=== PATIENT | male | born 1955 | race Caucasian/White ===

== ENCOUNTER 2019-11-19 15:35 | Inpatient (IN) | payer MEDICARE ==
[2019-11-19] MEDS ORDERED: ONDANSETRON 4 MG/2 ML VIAL IVP STA (15:56)
[2019-11-19] MEDS ORDERED: MORPHINE SULFATE 4 MG/ML SYRINGE IV STA (15:56)
[2019-11-19] MEDS ORDERED: SODIUM CHLORIDE 0.9% 1,000 ML IV STA (15:56)
[2019-11-19] MEDS ORDERED: FAMOTIDINE 20 MG/2 ML VIAL IV STA (15:57)
--- NOTE | 2019-11-19 16:03 | ED ---
General Adult HPI - General Chief complaint: Abdominal Pain Stated complaint: enlarged liver Time Seen by Provider: 11/19/19 15:46 Source: patient, RN notes reviewed Mode of arrival: ambulatory Limitations: no limitations - History of Present Illness Initial comments: Patient is a pleasant [age]-year-old male presenting to the emergency Department with complaints of abdominal discomfort. Patient had minimal symptoms around 2 AM. Discomfort was mild when he woke this morning. Discomfort has worsened since that time and is currently rated 8.5/10. Discomfort feels like pressure and is steady. There is mild nausea. Decreased appetite. Patient has only had a small amount of Jell-O earlier today. Patient has felt constipated over the past week or so. Patient did have a knee procedure done 9 or 10 days ago. No diarrhea. Patient has lost approximately 90 pounds over the past several months however this was intentional with a new diet plan that is working well for him. -: hour(s) - Related Data Allergies Allergy/AdvReac Type Severity Reaction Status Date / Time No Known Allergies Allergy Verified 11/19/19 15:44 Review of Systems ROS Statement: Those systems with pertinent positive or pertinent negative responses have been documented in the HPI. ROS Other: All systems not noted in ROS Statement are negative. Constitutional: Denies: fever Eyes: Denies: eye pain ENT: Denies: ear pain Respiratory: Denies: cough, dyspnea Cardiovascular: Denies: chest pain Endocrine: Denies: fatigue Gastrointestinal: Reports: abdominal pain, nausea, constipation. Denies: vomiting Genitourinary: Denies: dysuria Musculoskeletal: Denies: back pain Skin: Denies: rash Neurological: Denies: weakness Past Medical History Past Medical History: Diabetes Mellitus, Hyperlipidemia, Hypertension History of Any Multi-Drug Resistant Organisms: None Reported Past Surgical History: Appendectomy, Orthopedic Surgery Past Psychological History: No Psychological Hx Reported Smoking Status: Never smoker Past Alcohol Use History: None Reported Past Drug Use History: None Reported General Exam Limitations: no limitations General appearance: alert, in no apparent distress Head exam: Present: normocephalic Eye exam: Present: normal appearance Neck exam: Present: normal inspection Respiratory exam: Present: normal lung sounds bilaterally Cardiovascular Exam: Present: regular rate, normal rhythm Expanded Peripheral pulses: 2+: Dorsalis Pedis (R), Dorsalis Pedis (L) GI/Abdominal exam: Present: soft, tenderness (Moderate diffuse tenderness), hypoactive bowel sounds. Absent: distended, guarding, rebound, rigid, pulsatile mass Extremities exam: Present: normal inspection Neurological exam: Present: alert Psychiatric exam: Present: normal affect, normal mood Skin exam: Present: normal color Course Vital Signs 11/19/19 11/19/19 11/19/19 15:41 15:44 16:44 Temperature 98 F Pulse Rate 55 L Respiratory 16 18 18 Rate Blood Pressure 152/75 O2 Sat by Pulse 98 Oximetry 11/19/19 17:44 Temperature Pulse Rate 57 L Respiratory 18 Rate Blood Pressure 145/66 O2 Sat by Pulse 98 Oximetry Medical Decision Making - Medical Decision Making Patient reevaluated and significant improvement following pain medication. Patient and family updated on results and plan. Case was discussed in detail with Dr. Luna, who will admit covering for surgical call and does request NG tube. - Lab Data Result diagrams: 11/19/19 16:20 11/19/19 16:20 Lab Results 11/19/19 11/19/19 11/19/19 Range/Units 16:20 16:20 16:20 WBC 13.2 H (3.8-10.6) k/uL RBC 5.07 (4.30-5.90) m/uL Hgb 16.1 (13.0-17.5) gm/dL Hct 48.6 (39.0-53.0) % MCV 96.0 (80.0-100.0) fL MCH 31.9 (25.0-35.0) pg MCHC 33.2 (31.0-37.0) g/dL RDW 13.4 (11.5-15.5) % Plt Count 301 (150-450) k/uL Neutrophils % 82 % Lymphocytes % 10 % Monocytes % 5 % Eosinophils % 1 % Basophils % 1 % Neutrophils # 10.8 H (1.3-7.7) k/uL Lymphocytes # 1.4 (1.0-4.8) k/uL Monocytes # 0.6 (0-1.0) k/uL Eosinophils # 0.2 (0-0.7) k/uL Basophils # 0.1 (0-0.2) k/uL PT 11.0 (9.0-12.0) sec INR 1.1 (<1.2) APTT 28.1 (22.0-30.0) sec Sodium 131 L (137-145) mmol/L Potassium 4.4 (3.5-5.1) mmol/L Chloride 93 L (98-107) mmol/L Carbon Dioxide 27 (22-30) mmol/L Anion Gap 11 mmol/L BUN 21 H (9-20) mg/dL Creatinine 0.74 (0.66-1.25) mg/dL Est GFR (CKD-EPI)AfAm >90 (>60 ml/min/1.73 sqM) Est GFR (CKD-EPI)NonAf >90 (>60 ml/min/1.73 sqM) Glucose 136 H (74-99) mg/dL Calcium 10.0 (8.4-10.2) mg/dL Total Bilirubin 1.1 (0.2-1.3) mg/dL AST 23 (17-59) U/L ALT 16 (4-49) U/L Alkaline Phosphatase 63 (38-126) U/L Total Protein 7.2 (6.3-8.2) g/dL Albumin 4.8 (3.5-5.0) g/dL Amylase 31 (30-110) U/L Lipase 39 (23-300) U/L - Radiology Data Radiology results: report reviewed (Computed tomography scan of the abdomen and pelvis shows dilated fluid-filled small bowel loops up to 3.7 cm. Some torquing right mid abdomen likely representing transition point. Thickened small bowel adjacent mesenteric edema, suggesting high-grade small bowel obstruction.) Disposition Clinical Impression: Small bowel obstruction Disposition: ADMITTED IP TO THIS [facility] Is patient prescribed a controlled substance at d/c from ED?: No Referrals: Nonstaff,Physician [Primary Care Provider] - 1-2 days Decision Time: 18:50
[2019-11-19 16:34] LABS: Basophils # (A) 0.1 k/uL (0-0.2); Basophils % (A) 1 %; Eosinophils # (A) 0.2 k/uL (0-0.7); Eosinophils % (A) 1 %; HCT 48.6 % (39.0-53.0); HGB 16.1 gm/dL (13.0-17.5); Lymphocytes # (A) 1.4 k/uL (1.0-4.8); Lymphocytes % (A) 10 %; MCH 31.9 pg (25.0-35.0); MCHC 33.2 g/dL (31.0-37.0); Mean Platelet Volume 7.8; Monocytes # (A) 0.6 k/uL (0-1.0); Monocytes % (A) 5 %; Neutrophils # (A) 10.8 k/uL (1.3-7.7); Neutrophils % (A) 82 %; Platelet Count 301 k/uL (150-450); RBC 5.07 m/uL (4.30-5.90); RDW 13.4 % (11.5-15.5); WBC 13.2 k/uL (3.8-10.6)
[2019-11-19 16:43] LABS: INR 1.1 (<1.2); Partial Thromboplastin Time 28.1 sec (22.0-30.0)
[2019-11-19 16:45] LABS: ALT 16 U/L (4-49); AST 23 U/L (17-59); African American GFR (CKD) >90 (>60 ml/min/1.73 sqM); Albumin 4.8 g/dL (3.5-5.0); Alkaline Phosphatase 63 U/L (38-126); Amylase 31 U/L (30-110); Anion Gap 11 mmol/L; Blood Urea Nitrogen 21 mg/dL (9-20); Carbon Dioxide 27 mmol/L (22-30); Chloride 93 mmol/L (98-107); Glucose 136 mg/dL (74-99); Lipase 39 U/L (23-300); Non-African American GFR(CKD) >90 (>60 ml/min/1.73 sqM); Potassium 4.4 mmol/L (3.5-5.1); Sodium 131 mmol/L (137-145); Total Bilirubin 1.1 mg/dL (0.2-1.3); Total Protein 7.2 g/dL (6.3-8.2)
--- NOTE | 2019-11-19 18:11 | CT ---
EXAMINATION TYPE: CT abdomen pelvis w con DATE OF EXAM: 11/19/2019 COMPARISON: NONE HISTORY: 64-year-old male with right side abdomen pain TECHNIQUE: Contiguous axial scanning of the abdomen and pelvis following administration of 100 ml Iso venkatesh 300 IV contrast. Delayed images through the kidneys and coronal/sagittal reconstructions perform ed. CT DLP: 1404.9 mGycm Automated exposure control for dose reduction was used. FINDINGS: Heart normal size with trace pericardial fluid. There is mild circumferential wall thickening distal esophagus. Calcified pulmonary nodules at the visualized lower lungs compatible with prior granulomat ous disease. No pleural effusion. Mild generalized anasarca change. Liver borderline in size at 17.7 cm. Portal venous system is patent. No biliary ductal dilatation. Th ere are diffuse dilated small bowel loops measuring up to 3.7 cm. This seems to be torquing of small bowel in the right midabdomen, axial image 48 with edematous mesentery and some thickened small bowel loops in this region, refer to axial image 56 and coronal image 49. No free air is seen. Distal small bowel is collapsed. Mild overall stool burden. No pericolonic inflammatory change. Mild to moderate circumferential bladder wall thickening. Prostate gland measures 6.4 cm wide. Mild p elvic free fluid. Bones: Moderate degenerative disc disease lower lumbar spine with hypertrophic facet arthropathy. IMPRESSION: 1. DILATED, FLUID-FILLED SMALL BOWEL LOOPS MEASURING UP TO 3.7 CM. THERE SEEMS TO BE SOME TORQUING OF SMALL BOWEL IN THE RIGHT MID ABDOMEN MOST LIKELY REPRESENTING THE TRANSITION POINT. THERE ARE THICKE TRIXIE SMALL BOWEL LOOPS JUST ADJACENT WITH MESENTERIC EDEMA. FINDINGS HIGHLY SUGGESTIVE OF HIGH-GRADE S MALL BOWEL OBSTRUCTION. 2. MILD PELVIC FREE FLUID LIKELY REACTIVE TO THE OBSTRUCTION. 3. BLADDER WALL THICKENING COULD REPRESENT CYSTITIS OR CHRONIC BLADDER WALL HYPERTROPHY FROM OUTLET O BSTRUCTION GIVEN PROSTATOMEGALY OF 6.4 CM WIDE. 4. MILD CIRCUMFERENTIAL THICKENING DISTAL ESOPHAGUS. CORRELATE TO EXCLUDE ESOPHAGITIS.
[2019-11-19] MEDS ORDERED: NALOXONE 0.4 MG/ML 1 ML VIAL IV PRN (18:51)
[2019-11-19] MEDS ORDERED: ONDANSETRON 4 MG/2 ML VIAL IVP PRN (18:51)
--- NOTE | 2019-11-19 19:34 | XR ---
EXAMINATION TYPE: XR chest 1V portable DATE OF EXAM: 11/19/2019 Comparison: None Clinical History: 64-year-old male NG tube placement Findings: Heart normal size. Aorta and pulmonary vasculature within normal limits. Dense nodule at the right ba se suggestive of a calcified granuloma. Tip of the NG tube not well seen due to the degree of penetra tion. It may extend to just below the GE junction. No consolidation or pleural effusion. Impression: 1. Tip of NG tube not well seen due to the degree of penetration. It may extend to just below the GE junction. 2. No acute cardiopulmonary process.
[2019-11-19 20:57] LABS: Glucose,Whole Blood 89 mg/dL (75-99)
--- NOTE | 2019-11-19 22:46 | XR ---
EXAMINATION TYPE: XR chest 1V portable DATE OF EXAM: 11/19/2019 COMPARISON: Today HISTORY: Check tube placement. TECHNIQUE: Single view FINDINGS: Heart and mediastinum are normal. Lungs are clear. Diaphragm is normal. Bony thorax appears normal. There is nasogastric tube with the tip over the gastric fundus. IMPRESSION: Normal chest. NG tube in good position in the gastric fundus.
[2019-11-20] MEDS: MORPHINE SULFATE 4 MG/ML SYRINGE IV PRN ×3 (02:27→09:53)
[2019-11-20 04:47] LABS: Appearance,Urine Clear (Clear); Bilirubin,Urine Negative (Negative); Blood,Urine Negative (Negative); Color,Urine Yellow; Glucose,Urine (UA) Negative (Negative); Ketones,Urine 2+ (Negative); Leukocyte Esterase,Urine Negative (Negative); Nitrite,Urine Negative (Negative); Protein,Urine Negative (Negative); Specific Gravity,Urine 1.045 (1.001-1.035); Urobilinogen,Urine <2.0 mg/dL (<2.0)
[2019-11-20] MEDS: PANTOPRAZOLE 40 MG/10 ML VIAL IV SCH (06:49)
[2019-11-20 07:06] LABS: Glucose,Whole Blood 115 mg/dL (75-99)
--- NOTE | 2019-11-20 09:31 | P.GSHP ---
History of Present Illness H&P Date: 11/20/19 Chief Complaint: Abdominal pain, small bowel obstruction Is a 64-year-old male admitted to the emergency room with complaints of abdominal pain nausea vomiting. Patient's found have high-grade small bowel obstruction on CAT scan Past Medical History Past Medical History: Diabetes Mellitus, Hyperlipidemia, Hypertension History of Any Multi-Drug Resistant Organisms: None Reported Past Surgical History: Appendectomy, Orthopedic Surgery Additional Past Surgical History / Comment(s): Left knee replacement, hemorrhoidal fisure in 95/ Past Anesthesia/Blood Transfusion Reactions: No Reported Reaction Past Psychological History: No Psychological Hx Reported Smoking Status: Never smoker Past Alcohol Use History: None Reported Past Drug Use History: None Reported Medications and Allergies Home Medications Medication Instructions Recorded Confirmed Type Aspirin EC [Ecotrin Low Dose] 81 mg PO BID 11/19/19 11/19/19 History Atorvastatin [Lipitor] 20 mg PO DAILY 11/19/19 11/19/19 History Cholecalciferol [Vitamin D3 (25 5,000 unit PO DAILY 11/19/19 11/19/19 History Mcg = 1000 Iu)] Losartan Potassium 100 mg PO DAILY 11/19/19 11/19/19 History metFORMIN HCL 850 mg PO HS 11/19/19 11/19/19 History Allergies Allergy/AdvReac Type Severity Reaction Status Date / Time No Known Allergies Allergy Verified 11/19/19 21:00 Surgical - Exam Vital Signs Temp Pulse Resp BP Pulse Ox 98 F 55 L 16 152/75 98 11/19/19 15:41 11/19/19 15:41 11/19/19 15:41 11/19/19 15:41 11/19/19 15:41 - General well developed, moderate distress - Eyes PERRL - ENT normal pinna - Neck no masses - Respiratory normal expansion - Cardiovascular Rhythm: regular - Abdomen Diffuse tenderness throughout. There is no rebound or guarding Abdomen: soft, tender Results - Labs 11/19/19 16:20 11/19/19 16:20 Abnormal Lab Results - Last 24 Hours (Table) 11/19/19 11/19/19 11/20/19 Range/Units 16:20 16:20 04:30 WBC 13.2 H (3.8-10.6) k/uL Neutrophils # 10.8 H (1.3-7.7) k/uL Sodium 131 L (137-145) mmol/L Chloride 93 L (98-107) mmol/L BUN 21 H (9-20) mg/dL Glucose 136 H (74-99) mg/dL POC Glucose (mg/dL) (75-99) mg/dL Ur Specific [place] 1.045 H (1.001-1.035) Urine Ketones 2+ H (Negative) 11/20/19 Range/Units 07:04 WBC (3.8-10.6) k/uL Neutrophils # (1.3-7.7) k/uL Sodium (137-145) mmol/L Chloride (98-107) mmol/L BUN (9-20) mg/dL Glucose (74-99) mg/dL POC Glucose (mg/dL) 115 H (75-99) mg/dL Ur Specific [place] (1.001-1.035) Urine Ketones (Negative) Diabetes panel 11/19/19 Range/Units 16:20 Sodium 131 L (137-145) mmol/L Potassium 4.4 (3.5-5.1) mmol/L Chloride 93 L (98-107) mmol/L Carbon Dioxide 27 (22-30) mmol/L BUN 21 H (9-20) mg/dL Creatinine 0.74 (0.66-1.25) mg/dL Glucose 136 H (74-99) mg/dL Calcium 10.0 (8.4-10.2) mg/dL AST 23 (17-59) U/L ALT 16 (4-49) U/L Alkaline Phosphatase 63 (38-126) U/L Total Protein 7.2 (6.3-8.2) g/dL Albumin 4.8 (3.5-5.0) g/dL Calcium panel 11/19/19 Range/Units 16:20 Calcium 10.0 (8.4-10.2) mg/dL Albumin 4.8 (3.5-5.0) g/dL Pituitary panel 11/19/19 Range/Units 16:20 Sodium 131 L (137-145) mmol/L Potassium 4.4 (3.5-5.1) mmol/L Chloride 93 L (98-107) mmol/L Carbon Dioxide 27 (22-30) mmol/L BUN 21 H (9-20) mg/dL Creatinine 0.74 (0.66-1.25) mg/dL Glucose 136 H (74-99) mg/dL Calcium 10.0 (8.4-10.2) mg/dL Adrenal panel 11/19/19 Range/Units 16:20 Sodium 131 L (137-145) mmol/L Potassium 4.4 (3.5-5.1) mmol/L Chloride 93 L (98-107) mmol/L Carbon Dioxide 27 (22-30) mmol/L BUN 21 H (9-20) mg/dL Creatinine 0.74 (0.66-1.25) mg/dL Glucose 136 H (74-99) mg/dL Calcium 10.0 (8.4-10.2) mg/dL Total Bilirubin 1.1 (0.2-1.3) mg/dL AST 23 (17-59) U/L ALT 16 (4-49) U/L Alkaline Phosphatase 63 (38-126) U/L Total Protein 7.2 (6.3-8.2) g/dL Albumin 4.8 (3.5-5.0) g/dL Assessment and Plan Assessment: Small bowel obstruction. Patient has a high-grade obstruction. He'll undergo exploratory laparotomy today.
[2019-11-20 11:10] LABS: Glucose,Whole Blood 153 mg/dL (75-99)
[2019-11-20 11:34] VITALS: BMI 28.1
[2019-11-20] MEDS ORDERED: IV FLUID CONTINUATION 150 ML IV ONE (14:05)
[2019-11-20] MEDS ORDERED: ONDANSETRON 4 MG/2 ML VIAL ONE (14:25)
[2019-11-20] MEDS ORDERED: HEPARIN SODIUM,PORCINE 5,000 UNIT/ML 1 ML VIAL ONE (14:25)
[2019-11-20] MEDS ORDERED: MIDAZOLAM 2 MG/2 ML VIAL IV ONE (14:31)
[2019-11-20] MEDS ORDERED: fentaNYL (PF) 50 MCG/ML 2 ML AMP IV ONE (14:31)
[2019-11-20] MEDS ORDERED: LACTATED RINGERS 1,000 ML IV ONE ×3 (14:31→16:06)
[2019-11-20] MEDS ORDERED: NALOXONE 0.4 MG/ML 1 ML VIAL IV PRN ×2 (14:43→16:06)
[2019-11-20] MEDS ORDERED: NALBUPHINE 10 MG/ML (1 ML AMP) IV PRN (14:43)
[2019-11-20] MEDS ORDERED: DEXAMETHASONE SOD PHOSPHATE 10 MG/ML 1 ML VIAL IV ONE (14:45)
[2019-11-20] MEDS ORDERED: ONDANSETRON 4 MG/2 ML VIAL IVP ONE (14:45)
[2019-11-20] MEDS ORDERED: ePHEDrine SULFATE/0.9% NACL/PF 50 MG/5 ML SYRINGE IV ONE (15:07)
[2019-11-20] MEDS ORDERED: PROPOFOL 10 MG/ML 20 ML VIAL IV ONE (15:07)
[2019-11-20] MEDS ORDERED: ROCURONIUM 10 MG/ML (5 ML VIAL) IV ONE (15:07)
[2019-11-20] MEDS ORDERED: ceFAZolin 1,000 MG VIAL ONE (15:07)
[2019-11-20] MEDS ORDERED: fentaNYL (PF) 50 MCG/ML 2 ML AMP ONE (15:07)
[2019-11-20] MEDS ORDERED: LIDOCAINE 1% INJ 10MG/ML (20 ML MDV) ONE (15:07)
[2019-11-20] MEDS ORDERED: GLYCOPYRROLATE 0.2 MG/ML 2 ML VIAL ONE (15:07)
[2019-11-20] MEDS ORDERED: NEOSTIGMINE 1 MG/ML 10 ML VIAL ONE (15:07)
[2019-11-20] MEDS ORDERED: SUCCINYLCHOLINE CHLORIDE 100 MG/5 ML SYR IV ONE (15:07)
[2019-11-20] MEDS ORDERED: HEPARIN SODIUM,PORCINE 5,000 UNIT/ML 1 ML VIAL IV ONE (15:10)
[2019-11-20] MEDS ORDERED: SODIUM CHLORIDE 0.9% 100 ML with ceFAZolin 2,000 MG IV ONE ×2 (15:25)
[2019-11-20] MEDS ORDERED: HYDROmorphone 0.5 MG/0.5 ML SYRINGE IVP PRN (16:06)
[2019-11-20] MEDS ORDERED: ONDANSETRON 4 MG/2 ML VIAL IVP PRN (16:06)
[2019-11-20] MEDS: ROPIVACAINE 250 MG, HYDROMORPHONE (PF) 5 MG in SODIUM CHLORIDE 0.9% 200 ML EPIDURAL PRN ×2 (16:13→16:55)
[2019-11-20 16:19] LABS: Glucose,Whole Blood 135 mg/dL (75-99)
--- NOTE | 2019-11-20 16:22 | P.OP ---
Date of Procedure: 11/20/19 Preoperative Diagnosis: Small bowel obstruction Postoperative Diagnosis: Small bowel obstruction secondary to internal hernia Ischemic small bowel Procedure(s) Performed: Exploratory laparotomy Lysis of adhesion Small bowel resection Anesthesia: TYESHA Surgeon: Jose Luis Luna Estimated Blood Loss (ml): 20 Pathology: other (Ileum) Condition: stable Disposition: PACU Description of Procedure: Patient's placed on the table in the supine position. He received general anesthesia. His abdomen was prepped and draped usual fashion. The skin was incised through an upper midline incision. Then using electrocautery the subcutaneous tissue and then the abdominal wall was divided. The [place] retractors placed a wound. There was serosanguineous ascites. The small bowel was visually is. There appeared to be ischemia of the small bowel related to an internal hernia. The adhesive bands creating the internal hernia were lysed and then the hernia was reduced the small bowel was visualized. The small bowel appeared to be ischemic. This point the small bowel was transected proximally distally with a GI stapler, the Enseal device is used to divide the mesentery. and then using the TA a GI stapler a [id number] functional end-to-end staple anastomosis created. 3-0 GI silk sutures using a crotch stitch. The window in the mesentery was closed with 3-0 Vicryl. The abdomen was irrigated there is no bleeding seen. The fascia was closed with looped #1 PDS suture. Skin was closed jaden. Patient top she will was sent to recovery room in stable condition.
[2019-11-20] MEDS: INSULIN ASPART (NovoLOG) 100 UNIT/ML VIAL SQ SCH ×2 (17:37→20:47)
[2019-11-20 20:45] LABS: Glucose,Whole Blood 114 mg/dL (75-99)
--- NOTE | 2019-11-20 23:16 | P.CONS ---
History of Present Illness - Reason for Consult Consult date: 11/20/19 Medical management - Chief Complaint Abdominal pain - History of Present Illness Patient is a 64-year-old man with known history of hypertension, diabetes type 2 [id number], hyperlipidemia, recent history of left knee torn meniscus status post washout was admitted to hospital with complaints of abdominal discomfort. Patient symptoms started around 2 AM last night and woke him up from sleep. Pain patient felt pressure like sensation. Mainly in the mid abdomen associated nausea and patient also had small amount of dark red mucus in the stool as per patient. Denied any complaints of fever. No chills. No chest pain or shortness of breath. No prior history of bowel obstruction. D enied any recent diarrhea. Patient has been constipated for about a week. Patient lost approximately 90 pounds over the last several months however this was intentional with a new diet plan that is working well for him. CT of the abdomen pelvis showed dilated fluid-filled small bowel loops measuring up to 3.7 cm. There seems to be some talking of small bowel in the right midabdomen most likely representing the transition point. There are thickened small bowel loops just adjacent with the mesenteric edema. Findings highly suggestive of high-grade small bowel obstruction. Chest x-ray showed tip of the NG tube not well seen due to the area of placement. It may extend into just below the GE junction. No acute cardiopulmonary process. Patient was taken to the OR and patient underwent exploratory laparotomy, lysis of radiation and small bowel resection. Postoperatively patient blood pressure is elevated. Laboratory showed WBC 13.2, hemoglobin 16.1 and platelets 301 Sodium 131, potassium 4.4, chloride 99, BUN 21 and creatinine 0.74 Urine negative for infection COVID-19 PCR negative. Review of Systems Constitutional: Patient denies any fever or chills . No generalized weakness or weight loss. Abdomen: Patient does have nausea no vomiting. Did have abdominal pain and constipation. No diarrhea. . Cardiovascular: Patient denies any chest pain or short of breath no palpitations. Respiratory: patient denied any cough is from production. No shortness of breath Neurologic: Patient denied any numbness or tingling headache. Musculoskeletal: Patient denies any complaints of joint swelling or deformity. Skin: Negative Psychiatric: Negative Endocrine: No heat or cold intolerance. No recent weight gain. Genitourinary: No dysuria or hematuria. All other 14 point ROS negative except the above Past Medical History Past Medical History: Diabetes Mellitus, Hyperlipidemia, Hypertension History of Any Multi-Drug Resistant Organisms: None Reported Past Surgical History: Appendectomy, Orthopedic Surgery Additional Past Surgical History / Comment(s): Left knee replacement, hemorrhoidal fisure in Past Anesthesia/Blood Transfusion Reactions: No Reported Reaction Past Psychological History: No Psychological Hx Reported Smoking Status: Never smoker Past Alcohol Use History: None Reported Past Drug Use History: None Reported Medications and Allergies Home Medications Medication Instructions Recorded Confirmed Type Aspirin EC [Ecotrin Low Dose] 81 mg PO BID 11/19/19 11/19/19 History Atorvastatin [Lipitor] 20 mg PO DAILY 11/19/19 11/19/19 History Cholecalciferol [Vitamin D3 (25 5,000 unit PO DAILY 11/19/19 11/19/19 History Mcg = 1000 Iu)] Losartan Potassium 100 mg PO DAILY 11/19/19 11/19/19 History metFORMIN HCL 850 mg PO HS 11/19/19 11/19/19 History Allergies Allergy/AdvReac Type Severity Reaction Status Date / Time No Known Allergies Allergy Verified 11/20/19 14:10 Physical Exam Vitals: Vital Signs Temp Pulse Pulse Pulse Resp BP BP 11/20/19 16:43 70 16 157/72 11/20/19 16:28 67 16 131/63 11/20/19 16:13 97.4 F L 67 16 113/64 11/20/19 14:45 63 16 141/67 11/20/19 14:00 97.5 F L 64 16 161/77 11/20/19 07:00 98.4 F 60 17 11/20/19 02:20 98.0 F 57 L 11/19/19 19:45 97.7 F 51 L 14 11/19/19 19:29 63 18 129/67 11/19/19 19:00 63 18 129/67 11/19/19 18:00 18 11/19/19 17:44 57 L 18 145/66 BP Pulse Ox 11/20/19 16:43 97 11/20/19 16:28 99 11/20/19 16:13 99 11/20/19 14:45 99 11/20/19 14:00 97 11/20/19 07:00 174/81 91 L 11/20/19 02:20 182/79 95 11/19/19 19:45 162/80 99 11/19/19 19:29 98 11/19/19 19:00 98 11/19/19 18:00 11/19/19 17:44 98 Intake and Output 11/20/19 11/20/19 11/20/19 06:59 14:59 22:59 Intake Total 8320 690 8656 Output Total 1700 400 225 Balance -660 440 975 Intake: IV 450 1200 Intake, IV Titration 1040 390 Amount Sodium Chloride 0.9% 1, 1040 390 000 ml @ 130 mls/hr IV . [id number] STA Rx#:[id number] Output: Urine 1700 400 200 Straight 850 400 Estimated Blood Loss 25 Other: Voiding Method Toilet Urinal Weight 84 kg PHYSICAL EXAMINATION: Patient is lying in the bed comfortably, no acute distress, awake alert and oriented..NG tube is in place. HEENT: Normocephalic. Neck is supple. Pupils reactive. Nostrils clear. Oral cavity is moist. Ears reveal no drainage. Neck reveals no JVD, carotid bruits, or thyromegaly. CHEST EXAMINATION: Trachea is central. Symmetrical expansion. Lung pascual clear to auscultation and percussion. CARDIAC: Normal S1, S2 with no gallops. No murmurs ABDOMEN: Soft. Surgical site is bandaged. Bowel sounds diminished. No abdominal bruits. Extremities: reveal no edema. No clubbing or cyanosis Neurologically awake, alert, oriented x3 with well-coordinated movements. No focal deficits noted Skin: No rash or skin lesions. Psychiatric: Coperative. Nonsuicidal Musculoskeletal: No joint swelling or deformity. Normal range of motion. Results CBC & Chem 7: 11/19/19 16:20 11/19/19 16:20 Labs: Abnormal Lab Results - Last 24 Hours (Table) 11/20/19 11/20/19 11/20/19 Range/Units 04:30 07:04 11:09 POC Glucose (mg/dL) 115 H 153 H (75-99) mg/dL Ur Specific [place] 1.045 H (1.001-1.035) Urine Ketones 2+ H (Negative) 11/20/19 Range/Units 16:18 POC Glucose (mg/dL) 135 H (75-99) mg/dL Ur Specific [place] (1.001-1.035) Urine Ketones (Negative) Assessment and Plan Assessment: High-grade small bowel obstruction status post exploratory laparotomy and lysis of adhesions and bowel resection. Continued on NG tube. Thickened esophagus on the CT possible gastritis Recent history of left knee meniscal washout surgery Recent 90 LB intentional weight loss with new diet regimen Uncontrolled hypertension Hyperlipidemia Diabetes type 2 [id number] DVT prophylaxis with Lovenox subcu Plan Patient will be continued on IV hydration and NG tube for decompression. s/p exp lap. Patient is being continued on pain management, incentive spirometry and DVT prophylaxis. Continue with insulin scale and hold metformin at this time. Continue with home blood pressure medication- losartan. We will follow closely and further recommendations based on clinical course. Thank you for your consult. Time with Patient: Greater than 30
[2019-11-21 06:47] LABS: Glucose,Whole Blood 137 mg/dL (75-99)
--- NOTE | 2019-11-21 07:33 | P.PN ---
Progress Note - Text Progress Note Date: 11/21/19 Postoperative day #1 status post explaretory laparotomy/epidural catheter placed for postoperative analgesia, patient doing well epidural site okay, patient currently on combination of epidural infusion solution of Ropivacaine 0.0625% and Dilaudid 20 g per mL the infusion rate at 10 ml per hour , patient had no motor deficit epidural site okay , vital signs stable ,VAS 0/10 , Assessment and plan= post operative day # 1 patient doing well ,pain well controlled , there is no anesthesia related complications
[2019-11-21 07:47] LABS: Basophils % (A) 0 %; Eosinophils % (A) 0 %; HCT 38.7 % (39.0-53.0); Lymphocytes # (A) 0.4 k/uL (1.0-4.8); Lymphocytes % (A) 3 %; MCHC 33.8 g/dL (31.0-37.0); MCV 97.7 fL (80.0-100.0); Mean Platelet Volume 7.5; Monocytes # (A) 0.8 k/uL (0-1.0); Monocytes % (A) 6 %; Neutrophils # (A) 12.4 k/uL (1.3-7.7); Neutrophils % (A) 91 %; Platelet Count 237 k/uL (150-450); RBC 3.96 m/uL (4.30-5.90); RDW 13.6 % (11.5-15.5); WBC 13.6 k/uL (3.8-10.6)
[2019-11-21 07:57] LABS: ALT 9 U/L (4-49); AST 15 U/L (17-59); African American GFR (CKD) >90 (>60 ml/min/1.73 sqM); Albumin 2.7 g/dL (3.5-5.0); Alkaline Phosphatase 42 U/L (38-126); Anion Gap 4 mmol/L; Blood Urea Nitrogen 20 mg/dL (9-20); Calcium 8.6 mg/dL (8.4-10.2); Carbon Dioxide 28 mmol/L (22-30); Chloride 99 mmol/L (98-107); Glucose 128 mg/dL (74-99); Non-African American GFR(CKD) >90 (>60 ml/min/1.73 sqM); Potassium 4.9 mmol/L (3.5-5.1); Sodium 131 mmol/L (137-145); Total Bilirubin 0.8 mg/dL (0.2-1.3); Total Protein 4.8 g/dL (6.3-8.2)
[2019-11-21 08:09] LABS: HGB 13.1 gm/dL (13.0-17.5)
[2019-11-21] MEDS: INSULIN ASPART (NovoLOG) 100 UNIT/ML VIAL SQ SCH ×4 (08:13→21:01)
[2019-11-21] MEDS: LOSARTAN 50 MG TAB PO SCH (08:15)
[2019-11-21] MEDS: ATORVASTATIN 20 MG TAB PO SCH (08:15)
[2019-11-21] MEDS: ENOXAPARIN 40 MG/0.4 ML SYRINGE SQ SCH (08:20)
[2019-11-21] MEDS: PANTOPRAZOLE 40 MG/10 ML VIAL IV SCH (08:20)
[2019-11-21 11:50] LABS: Glucose,Whole Blood 126 mg/dL (75-99)
--- NOTE | 2019-11-21 12:00 | P.PN ---
Progress Note - Text Progress Note Date: 11/21/19 The patient's postoperative day 1 from exposure laparotomy with small bowel resection due to internal hernia and ischemic bowel. Patient feels better. On exam vital signs are stable. Abdomen soft. Incision sites clean and intact. Patient has had no evidence of bowel function. He'll remain with his NG tube until he passes gas.
[2019-11-21 13:34] LABS: Hemoglobin A1C 5.5 % (4.0-6.0)
[2019-11-21] MEDS: ROPIVACAINE 250 MG, HYDROMORPHONE (PF) 5 MG in SODIUM CHLORIDE 0.9% 200 ML EPIDURAL PRN (15:03)
[2019-11-21 17:13] LABS: Glucose,Whole Blood 111 mg/dL (75-99)
--- NOTE | 2019-11-21 17:16 | PN ---
PROGRESS NOTE DATE OF SERVICE: 11/21/2019 This 64-year-old gentleman who was admitted with a high-grade small bowel obstruction had exploratory laparotomy and lysis of adhesions. The patient also had bowel resection. No chest pain. No palpitations. No fever. PHYSICAL EXAMINATION: Alert and oriented x3. Pulse is 75, blood pressure 97/54, respiration 16, temperature 98.2, pulse ox 94% on 2 L. HEENT: Conjunctivae normal. NECK: No jugular venous distention. CARDIOVASCULAR SYSTEM: S1, S2 muffled. RESPIRATORY SYSTEM: Breath sounds diminished at the bases. No rhonchi. No crackles. ABDOMEN: Soft. Status post surgery. LEGS: No edema. No swelling. NERVOUS SYSTEM: No focal deficit. LABS: WBC 13.6. Sodium is 131. Albumin 2.7. ASSESSMENT: 1. High-grade small bowel obstruction, status post exploratory laparotomy, lysis of adhesions and bowel resection. 2. Continued NG tube. 3. Thickening on the CT scan with possible gastritis. 4. Recent history of left knee meniscal washout surgery. 5. Recent 90-pound intentional weight loss. 6. Uncontrolled hypertension. 7. Hyperlipidemia. 8. Diabetes mellitus, type 2, [id number]. RECOMMENDATIONS AND DISCUSSION: I recommend to continue current medications, continue with the monitoring, symptomatic treatment. Otherwise at this time I recommend continuing to monitor blood sugars. Otherwise, monitor electrolytes closely. Guarded prognosis. Further recommendations to follow. MMODL / IJN: [id number] / MTDD
[2019-11-21 20:59] LABS: Glucose,Whole Blood 82 mg/dL (75-99)
[2019-11-22 07:02] LABS: Glucose,Whole Blood 93 mg/dL (75-99)
[2019-11-22] MEDS: INSULIN ASPART (NovoLOG) 100 UNIT/ML VIAL SQ SCH ×4 (07:55→21:30)
[2019-11-22] MEDS: ENOXAPARIN 40 MG/0.4 ML SYRINGE SQ SCH (08:12)
[2019-11-22] MEDS: ATORVASTATIN 20 MG TAB PO SCH (08:12)
[2019-11-22] MEDS: PANTOPRAZOLE 40 MG/10 ML VIAL IV SCH (08:12)
[2019-11-22] MEDS: LOSARTAN 50 MG TAB PO SCH (08:12)
[2019-11-22 11:50] LABS: Glucose,Whole Blood 74 mg/dL (75-99)
--- NOTE | 2019-11-22 11:50 | P.PN ---
Progress Note - Text 11/21 702am 64-year-old male status post exploratory lap and lysis of adhesion. Patient has an epidural catheter for postop pain control with the solution running at 6 mL an hour, patient has a VAS of 0 with no motor or sensory deficits. Patient was encouraged to ambulate. Plan to continue epidural infusion
[2019-11-22] MEDS ORDERED: LACTATED RINGERS 1,000 ML IV SCH (12:00)
--- NOTE | 2019-11-22 16:15 | P.PN ---
Progress Note - Text Progress Note Date: 11/22/19 The patient accident removed his nasogastric tube today. On exam vital signs are stable. Abdomen is soft. Incisions is clean dry intact. Patient will remain nothing by mouth. He has had no significant bowel function. We will start clear liquids once he passes flatus
[2019-11-22 16:27] LABS: Glucose,Whole Blood 70 mg/dL (75-99)
--- NOTE | 2019-11-22 16:50 | PN ---
PROGRESS NOTE DATE OF SERVICE: 11/22/2019 This is a 64-year-old gentleman who was admitted with high-grade bowel obstruction, had exploratory laparotomy, lysis of adhesions. NG tube has been removed today by the patient unintentionally. No chest pain. No palpitations. No fever. PHYSICAL EXAMINATION: Alert and oriented x3, pulse 72, blood pressure 124/60, respiration 17, temperature 98.2, pulse ox 98% on 2 L. HEENT: Conjunctivae normal, oral mucosa moist. NECK: No jugular venous distension. CARDIOVASCULAR SYSTEM: S1, S2, muffled. RESPIRATION: Breath sounds diminished at the bases, a few rhonchi, no crackles. ABDOMEN: Soft, nontender. LEGS: No edema, no swelling. NERVOUS SYSTEM: No focal deficits. LABS: WBC 13.2, hemoglobin 13.1, sodium 131. ASSESSMENT: 1. High-grade small bowel obstruction, status post exploratory laparotomy, lysis of adhesions and bowel resection. 2. NB tube removed unintentionally. 3. Thickening of the CAT scan with possible gastritis. 4. Recent history of left knee meniscal washout surgery. 5. Recent 90 pounds intentional weight loss. 6. Uncontrolled hypertension. 7. Hyperlipidemia. 8. Diabetes mellitus type 2, non-insulin dependent. 9. Mild hyponatremia. 10.Increased WBC. 11.FULL CODE. RECOMMENDATION: In this 64-year-old gentleman who presented with multiple complex medical issues, will monitor the patient closely, continue with the current management and symptomatic treatment. Otherwise the patient is still on n.p.o. diet. Repeat labs tomorrow. Otherwise, closely follow with surgery and DVT prophylaxis, Protonix. Guarded prognosis. Further recommendations to follow. Will initiate the home medication while the patient is stable and p.o. MMODL / IJN: [id number] /
[2019-11-22 20:36] LABS: Glucose,Whole Blood 56 mg/dL (75-99)
[2019-11-22] MEDS ORDERED: DEXTROSE 50% SYRINGE 50 ML IVP STA (20:42)
[2019-11-22 21:13] LABS: Glucose,Whole Blood 97 mg/dL (75-99)
[2019-11-22] MEDS: DEXTROSE 5%-0.9% NACL 1,000 ML IV SCH (21:30)
[2019-11-23] MEDS: ROPIVACAINE 250 MG, HYDROMORPHONE (PF) 5 MG in SODIUM CHLORIDE 0.9% 200 ML EPIDURAL PRN (06:31)
[2019-11-23 06:57] LABS: Glucose,Whole Blood 118 mg/dL (75-99)
--- NOTE | 2019-11-23 07:04 | P.PN ---
Progress Note - Text Progress Note Date: 11/23/19 The patient has a thoracic epidural catheter for postoperative pain control. Postop day #( 2 ), status post exp lap. The patient is doing well. The pain is well controlled. Infusion rate is 5 MLS an hour. Patient denies any weakness or paresthesia in the lower extremities.,or any back pain. There are no signs of infection around the epidural catheter skin entry site. We will continue the epidural infusion of local anesthetics as per protocol.
[2019-11-23] MEDS: INSULIN ASPART (NovoLOG) 100 UNIT/ML VIAL SQ SCH ×4 (07:10→20:55)
[2019-11-23 07:40] LABS: Basophils # (A) 0.1 k/uL (0-0.2); Basophils % (A) 1 %; Eosinophils # (A) 0.3 k/uL (0-0.7); Eosinophils % (A) 2 %; HCT 38.3 % (39.0-53.0); HGB 12.7 gm/dL (13.0-17.5); Lymphocytes # (A) 0.9 k/uL (1.0-4.8); Lymphocytes % (A) 5 %; MCH 33.1 pg (25.0-35.0); MCHC 33.2 g/dL (31.0-37.0); MCV 99.8 fL (80.0-100.0); Mean Platelet Volume 7.7; Monocytes # (A) 0.9 k/uL (0-1.0); Monocytes % (A) 5 %; Neutrophils # (A) 16.8 k/uL (1.3-7.7); Neutrophils % (A) 88 %; Platelet Count 247 k/uL (150-450); RBC 3.84 m/uL (4.30-5.90); RDW 13.6 % (11.5-15.5)
[2019-11-23 08:03] LABS: African American GFR (CKD) >90 (>60 ml/min/1.73 sqM); Anion Gap 6 mmol/L; Blood Urea Nitrogen 10 mg/dL (9-20); Calcium 8.6 mg/dL (8.4-10.2); Carbon Dioxide 31 mmol/L (22-30); Chloride 95 mmol/L (98-107); Glucose 94 mg/dL (74-99); Non-African American GFR(CKD) >90 (>60 ml/min/1.73 sqM); Potassium 3.9 mmol/L (3.5-5.1); Sodium 132 mmol/L (137-145)
[2019-11-23] MEDS: PIPERACILLIN-TAZOBACTAM 3.375 GM in SODIUM CHLORIDE 0.9% 100 ML IVPB SCH ×3 (08:20→23:14)
[2019-11-23] MEDS: ENOXAPARIN 40 MG/0.4 ML SYRINGE SQ SCH (08:20)
[2019-11-23] MEDS: DEXTROSE 5%-0.9% NACL 1,000 ML IV SCH (08:21)
[2019-11-23] MEDS: ATORVASTATIN 20 MG TAB PO SCH (08:21)
[2019-11-23] MEDS: PANTOPRAZOLE 40 MG/10 ML VIAL IV SCH (08:21)
[2019-11-23] MEDS: LOSARTAN 50 MG TAB PO SCH (08:21)
[2019-11-23 11:28] LABS: Glucose,Whole Blood 112 mg/dL (75-99)
[2019-11-23 16:35] LABS: Glucose,Whole Blood 101 mg/dL (75-99)
[2019-11-23 17:23] LABS: Amorphous Sediment,Urine Rare /hpf; Appearance,Urine Turbid (Clear); Bacteria,Urine Rare /hpf; Bilirubin,Urine Negative (Negative); Blood,Urine Large (Negative); Budding Yeast,Urine Occasional /hpf; Color,Urine Yellow; Glucose,Urine (UA) Negative (Negative); Ketones,Urine Trace (Negative); Leukocyte Esterase,Urine Small (Negative); Mucus,Urine Rare /hpf; Nitrite,Urine Negative (Negative); PH, Urine 6.5 (5.0-8.0); Protein,Urine 1+ (Negative); RBC,Urine 105 /hpf (0-5); Specific Gravity,Urine 1.018 (1.001-1.035); Squamous Epithelial Cell,Urine <1 /hpf (0-4); WBC,Urine 16 /hpf (0-5)
--- NOTE | 2019-11-23 18:30 | PN ---
PROGRESS NOTE DATE OF SERVICE: 11/23/2019 This 64-year-old gentleman who was admitted with high-grade small bowel obstruction had exploratory laparotomy. The patient had surgery. Patient is being monitored closely. NG tube is removed. No chest pain. No palpitations. No fever. PHYSICAL EXAMINATION: Alert and oriented x3. Pulse 82, blood pressure 126/66, respirations 16, temperature 98.4, pulse ox 94% on room air. HEENT: Conjunctivae normal. NECK: No jugular venous distention. CARDIOVASCULAR SYSTEM: S1, S2 muffled. RESPIRATORY SYSTEM: Breath sounds diminished at the bases. No rhonchi. No crackles. ABDOMEN: Soft, non-tender. LEGS: No edema. No swelling. NERVOUS SYSTEM: No focal deficit. LABS: WBC 19, hemoglobin 12.6. Sodium 132. UA noted; mostly RBCs. ASSESSMENT: 1. High-grade small bowel obstruction, status post exploratory laparotomy, lysis of adhesions and bowel resection. 2. NG tube removed. 3. Thickening on the CT scan and possible gastritis. 4. Recent history of left knee meniscal washout surgery. 5. Recent 90-pound intentional weight loss. 6. Uncontrolled hypertension. 7. Hyperlipidemia. 8. Diabetes mellitus, type 2, [id number]. 9. Mild hyponatremia. 10.Increased white count. 11.FULL CODE. RECOMMENDATIONS AND DISCUSSION: At this time I recommend to continue current medications, continue with the monitoring, symptomatic treatment. Closely follow with Surgery. Incentive spirometry. Further recommendations to follow. MMODL / IJN: [id number] /
--- NOTE | 2019-11-23 19:36 | P.PN ---
Progress Note - Text Progress Note Date: 11/23/19 The patient is resting comfortably in his bed. He denies any significant bowel function. On exam her vital signs are stable. Abdomen soft. Incision is clean dry tach. Status post small bowel resection for internal hernia. Patient will continue nothing by mouth until he has significant bowel function.
[2019-11-23 20:48] LABS: Glucose,Whole Blood 108 mg/dL (75-99)
[2019-11-24] MEDS: DEXTROSE 5%-0.9% NACL 1,000 ML IV SCH ×2 (00:33→07:34)
[2019-11-24 06:54] LABS: Glucose,Whole Blood 137 mg/dL (75-99)
[2019-11-24] MEDS: ENOXAPARIN 40 MG/0.4 ML SYRINGE SQ SCH (07:33)
[2019-11-24] MEDS: ATORVASTATIN 20 MG TAB PO SCH (07:33)
[2019-11-24] MEDS: LOSARTAN 50 MG TAB PO SCH (07:33)
[2019-11-24] MEDS: INSULIN ASPART (NovoLOG) 100 UNIT/ML VIAL SQ SCH ×4 (07:33→23:33)
[2019-11-24] MEDS: PIPERACILLIN-TAZOBACTAM 3.375 GM in SODIUM CHLORIDE 0.9% 100 ML IVPB SCH ×2 (07:34→15:34)
[2019-11-24] MEDS: PANTOPRAZOLE 40 MG/10 ML VIAL IV SCH (07:34)
[2019-11-24 08:40] LABS: Basophils % (A) 0 %; Eosinophils # (A) 0.3 k/uL (0-0.7); Eosinophils % (A) 2 %; HCT 32.9 % (39.0-53.0); HGB 10.6 gm/dL (13.0-17.5); Lymphocytes # (A) 0.6 k/uL (1.0-4.8); Lymphocytes % (A) 5 %; MCHC 32.3 g/dL (31.0-37.0); Mean Platelet Volume 7.7; Monocytes # (A) 0.8 k/uL (0-1.0); Monocytes % (A) 6 %; Neutrophils # (A) 10.8 k/uL (1.3-7.7); Neutrophils % (A) 86 %; Platelet Count 204 k/uL (150-450); RBC 3.32 m/uL (4.30-5.90); RDW 13.7 % (11.5-15.5); WBC 12.6 k/uL (3.8-10.6)
--- NOTE | 2019-11-24 09:20 | P.PN ---
Progress Note - Text 11/23 715AM 64-year-old male status post explore lap with . Patient has an epidural catheter for postop pain control with the solution running at 5 mL an hour with a VAS of 1. No motor or sensory deficit noted. Patient 100. Plantar VCD epidural catheter and the nurse was informed
[2019-11-24 09:21] LABS: African American GFR (CKD) >90 (>60 ml/min/1.73 sqM); Anion Gap 5 mmol/L; Blood Urea Nitrogen 11 mg/dL (9-20); Calcium 8.3 mg/dL (8.4-10.2); Carbon Dioxide 29 mmol/L (22-30); Chloride 100 mmol/L (98-107); Glucose 106 mg/dL (74-99); Non-African American GFR(CKD) >90 (>60 ml/min/1.73 sqM); Potassium 3.6 mmol/L (3.5-5.1); Sodium 134 mmol/L (137-145)
[2019-11-24 11:22] LABS: Glucose,Whole Blood 125 mg/dL (75-99)
--- NOTE | 2019-11-24 12:00 | P.PN ---
Progress Note - Text Progress Note Date: 11/24/19 Patient states he feels better. He has hadn't no significant flatus. On exam vital signs are stable. Abdomen soft. Incision site is clean dry and intact. Status post small bowel resection for strangulated internal hernia. Patient will start on some sips of clears today.
--- NOTE | 2019-11-24 15:51 | PN ---
PROGRESS NOTE DATE OF SERVICE: 11/24/2019 This 64-year-old gentleman was admitted with high-grade small bowel obstruction and exploratory laparotomy, has lysis of adhesion and the patient will be closely monitored. NG tube was removed, no chest pain. No palpitations. No fever. PHYSICAL EXAMINATION: Alert and oriented x3. Pulse is 75, blood pressure 115/60, respirations 17, temperature 98.4, pulse ox 97% on 2 L. HEENT: Conjunctivae normal. NECK: No jugular venous distension. CARDIOVASCULAR: S1, S2 muffled. RESPIRATION: Breath sounds diminished at the bases, no rhonchi, no crackles. ABDOMEN: Soft, nontender. No mass palpable. LEGS: No edema, no swelling. NERVOUS SYSTEM: No focal deficits. LABS: At this time shows WBC 12.2, hemoglobin is 10.2, sodium 134. ASSESSMENT: 1. High-grade small bowel obstruction, status post exploratory laparotomy, lysis of adhesions, bowel resection. 2. NG tube removed. 3. Thickening of the can in the CT scan and possible gastritis. 4. Recent history of left knee meniscal washout surgery. 5. Recent 90 pound intentional weight loss. 6. Uncontrolled hypertension. 7. Hyperlipidemia. 8. Diabetes mellitus type 2, non-insulin dependent. 9. Mild hyponatremia. 10.Increased WBC. 11.FULL CODE. RECOMMENDATION: Continue with the current medications, Follow closely with surgery. Further recommendations to follow. DVT prophylaxis. Incentive spirometry. LINNETTE / DELFINA: [id number] /
[2019-11-24 16:26] LABS: Glucose,Whole Blood 143 mg/dL (75-99)
[2019-11-24 20:34] LABS: Glucose,Whole Blood 150 mg/dL (75-99)
[2019-11-25] MEDS: PIPERACILLIN-TAZOBACTAM 3.375 GM in SODIUM CHLORIDE 0.9% 100 ML IVPB SCH ×4 (00:21→23:39)
[2019-11-25] MEDS: DEXTROSE 5%-0.9% NACL 1,000 ML IV SCH ×2 (03:28→11:40)
[2019-11-25 06:49] LABS: Glucose,Whole Blood 155 mg/dL (75-99)
[2019-11-25 08:10] LABS: Basophils % (A) 0 %; Eosinophils # (A) 0.2 k/uL (0-0.7); Eosinophils % (A) 2 %; HCT 34.3 % (39.0-53.0); HGB 11.2 gm/dL (13.0-17.5); Lymphocytes # (A) 0.6 k/uL (1.0-4.8); Lymphocytes % (A) 4 %; MCH 32.3 pg (25.0-35.0); MCHC 32.6 g/dL (31.0-37.0); MCV 98.8 fL (80.0-100.0); Mean Platelet Volume 7.5; Monocytes # (A) 0.9 k/uL (0-1.0); Monocytes % (A) 7 %; Neutrophils # (A) 12.3 k/uL (1.3-7.7); Neutrophils % (A) 86 %; Platelet Count 239 k/uL (150-450); RBC 3.47 m/uL (4.30-5.90); RDW 13.6 % (11.5-15.5); WBC 14.2 k/uL (3.8-10.6)
[2019-11-25] MEDS: ENOXAPARIN 40 MG/0.4 ML SYRINGE SQ SCH (08:21)
[2019-11-25] MEDS: PANTOPRAZOLE 40 MG/10 ML VIAL IV SCH (08:21)
[2019-11-25] MEDS: LOSARTAN 50 MG TAB PO SCH (08:21)
[2019-11-25] MEDS: ATORVASTATIN 20 MG TAB PO SCH (08:22)
[2019-11-25] MEDS: INSULIN ASPART (NovoLOG) 100 UNIT/ML VIAL SQ SCH ×4 (08:22→20:40)
[2019-11-25 08:23] LABS: African American GFR (CKD) >90 (>60 ml/min/1.73 sqM); Anion Gap 5 mmol/L; Blood Urea Nitrogen 8 mg/dL (9-20); Calcium 8.3 mg/dL (8.4-10.2); Carbon Dioxide 30 mmol/L (22-30); Chloride 102 mmol/L (98-107); Glucose 137 mg/dL (74-99); Non-African American GFR(CKD) >90 (>60 ml/min/1.73 sqM); Potassium 3.6 mmol/L (3.5-5.1); Sodium 137 mmol/L (137-145)
[2019-11-25 11:19] LABS: Glucose,Whole Blood 153 mg/dL (75-99)
--- NOTE | 2019-11-25 14:31 | P.PN ---
Subjective Progress Note Date: 11/25/19 CHIEF COMPLAINT: Small bowel obstruction HISTORY OF PRESENT ILLNESS: The patient is a 64-year-old male status post small bowel resection for internal hernia, 11/20/2019. He is POD 5. His family is at be dside and has concerns for testicular pain that has been present for 2 days. At the time of my assessment, patient was ambulating with assistance from bathroom to the bed. He had concerns for pale fingers. He reports no bowel movements. ROS: No reports of nausea and vomiting. No bowel movements. No fevers or chills. No new chest pain. No productive sputum PHYSICAL EXAM: VITAL SIGNS: Reviewed CONSTITUTIONAL: Well developed and in no acute distress. EYES: Conjuctivae without sclera icterus. Extraocular movements grossly intact. HEAD, EARS, NOSE, THROAT: Moist buccal mucosa. Head is atraumatic, normocephalic. Hears conversational speech. No nasal drainage. NECK: Supple. No thyroidomegaly. RESPIRATORY: Non-labored respirations and equal bilateral excursions. CARDIOVASCULAR: Palpable 2+ radial pulses. ABDOMEN: No peritonitis. Abdominal binder present MS: Fingers evaluated. Sensation intact and warm to touch. No cyanosis or edema SKIN: Good skin turgor. Well perfused. NEUROLOGIC: Cranial nerves II through XII grossly intact. No focal or lateralizing signs. PSYCH: Appropriate affect. Alert and oriented to person, place and time. CLINICAL LABS: White blood cell count elevated 12.6-14.2. Hemoglobin elevated 10.6 to 11.2 ASSESSMENT: 1. Small bowel obstruction 2. Testicular pain PLAN: 1. Consultation to urology for testicular pain, persistent. 2. Ambulation. 3. Testicular support 4. Await bowel function Objective - Vital Signs Vital signs: Vital Signs Temp 97.7 F 11/25/19 07:00 Pulse 75 11/25/19 07:00 Resp 16 11/25/19 07:00 BP 131/64 11/25/19 07:00 Pulse Ox 96 11/25/19 07:00 Intake & Output 11/24/19 11/25/19 11/25/19 18:59 06:59 18:59 Intake Total 625 980 800 Output Total 1100 1938 Balance -551 -031 800 Weight 84 kg Intake: IV 625 820 800 Dextrose 5%-0.9% NaCl 1, 525 820 600 000 ml @ 75 mls/hr IV . [id number] [facility] Rx#:[id number] Piperacillin-Tazobactam 3 100 200 .375 gm In Sodium Chloride 0.9% 100 ml @ 25 mls/hr IVPB Q8HR [facility] Rx# :[id number] Intake, IV Titration 100 Amount Piperacillin-Tazobactam 3 100 .375 gm In Sodium Chloride 0.9% 100 ml @ 25 mls/hr IVPB Q8HR [facility] Rx# :[id number] Oral 60 Output: Urine 1100 1800 Uretheral (Alvarez) 1100 Post Void Residual 138 Other: Voiding Method Indwelling Catheter Toilet Urinal # Voids 1 - Labs CBC & Chem 7: 11/25/19 07:44 11/25/19 07:44 Labs: Abnormal Lab Results - Last 24 Hours (Table) 11/24/19 11/24/19 11/25/19 Range/Units 16:24 20:33 06:47 WBC (3.8-10.6) k/uL RBC (4.30-5.90) m/uL Hgb (13.0-17.5) gm/dL Hct (39.0-53.0) % Neutrophils # (1.3-7.7) k/uL Lymphocytes # (1.0-4.8) k/uL BUN (9-20) mg/dL Glucose (74-99) mg/dL POC Glucose (mg/dL) 143 H 150 H 155 H (75-99) mg/dL Calcium (8.4-10.2) mg/dL 11/25/19 11/25/19 11/25/19 Range/Units 07:44 07:44 11:17 WBC 14.2 H (3.8-10.6) k/uL RBC 3.47 L (4.30-5.90) m/uL Hgb 11.2 L (13.0-17.5) gm/dL Hct 34.3 L (39.0-53.0) % Neutrophils # 12.3 H (1.3-7.7) k/uL Lymphocytes # 0.6 L (1.0-4.8) k/uL BUN 8 L (9-20) mg/dL Glucose 137 H (74-99) mg/dL POC Glucose (mg/dL) 153 H (75-99) mg/dL Calcium 8.3 L (8.4-10.2) mg/dL Microbiology - Last 24 Hours (Table) 11/23/19 16:32 Urine Culture - Final Urine,Catheterized Assessment and Plan (1) Internal hernia Current Visit: Yes Status: Acute Code(s): K45.8 - OTH ABDOMINAL HERNIA WITHOUT OBSTRUCTION OR GANGRENE SNOMED Code(s): 03959862 (2) Testicular pain Current Visit: Yes Status: Acute Code(s): N50.819 - TESTICULAR PAIN, UNSPECIFIED SNOMED Code(s): 72874484 (3) Small bowel obstruction Current Visit: Yes Status: Acute Code(s): K56.609 - UNSP INTESTNL OBST, UNSP TO PARTIAL VERSUS COMPLETE OBST SNOMED Code(s): 145492020
[2019-11-25] MEDS: TAMSULOSIN 0.4 MG CAP.ER.24H PO SCH (15:38)
[2019-11-25 16:26] LABS: Glucose,Whole Blood 209 mg/dL (75-99)
--- NOTE | 2019-11-25 18:37 | P.GSCN ---
History of Present Illness Consult date: 11/25/19 History of present illness: 64-year-old gentleman in the hospital with a small bowel obstruction requiring exploration and small bowel resection with repair by Dr. Luna. He has been slow to recuperate. He has had urologic problems including voiding as well as right testicular pain. The patient lives in [facility] when this has happened. He does not have a local physician. He states that the only time he seen a urologist in the past [facility] was due to PSA evaluation which does not sound very high. He states that prior to this hospitalization he had no testicle pain. He has had a previous vasectomy. He has had no problems urinating. According to the nursing staff he has had some problems urinating. He had a catheter placed when he had his bowel obstruction due to incomplete bladder emptying. The catheter had Been removed postop but he was straight catheter 1500 mL this afternoon. He also complains of testicular pain for the last 24 hours. His urinalysis showed 100 red cells, 15 white cells. The culture is negative. The preoperative computed tomography scan is reviewed. There is no obvious right inguinal hernia. There was no evaluation of the scrotum on the computed tomography scan. Review of Systems All systems: negative - Constitutional Denies fever, Denies weight loss - EENT Eyes: denies blurred vision Ears, nose, mouth and throat: Denies dysphagia - Cardiovascular Denies chest pain, Denies shortness of breath - Respiratory Denies cough, Denies 7 - Gastrointestinal Reports as per HPI - Genitourinary Denies dysuria, Denies hematuria - Integumentary Denies rash, Denies unusual bruising - Neurological Denies headaches, Denies syncope - Hematologic/Lymphatic Denies easy bleeding, Denies easy bruising Past Medical History Past Medical History: Diabetes Mellitus, Hyperlipidemia, Hypertension History of Any Multi-Drug Resistant Organisms: None Reported Past Surgical History: Appendectomy, Orthopedic Surgery Additional Past Surgical History / Comment(s): Left knee replacement, hemorrhoidal fisure in Past Anesthesia/Blood Transfusion Reactions: No Reported Reaction Past Psychological History: No Psychological Hx Reported Smoking Status: Never smoker Past Alcohol Use History: None Reported Past Drug Use History: None Reported Medications and Allergies Home Medications Medication Instructions Recorded Confirmed Type Aspirin EC [Ecotrin Low Dose] 81 mg PO BID 11/19/19 11/19/19 History Atorvastatin [Lipitor] 20 mg PO DAILY 11/19/19 11/19/19 History Cholecalciferol [Vitamin D3 (25 5,000 unit PO DAILY 11/19/19 11/19/19 History Mcg = 1000 Iu)] Losartan Potassium 100 mg PO DAILY 11/19/19 11/19/19 History metFORMIN HCL 850 mg PO HS 11/19/19 11/19/19 History Allergies Allergy/AdvReac Type Severity Reaction Status Date / Time No Known Allergies Allergy Verified 11/20/19 14:10 Surgical - Exam Vital Signs Temp Pulse Resp BP Pulse Ox 98 F 55 L 16 152/75 98 11/19/19 15:41 11/19/19 15:41 11/19/19 15:41 11/19/19 15:41 11/19/19 15:41 - General well developed, well nourished, moderate distress - Eyes PERRL - ENT no hearing loss - Neck no masses - Respiratory normal expansion, normal respiratory effort - Cardiovascular Rhythm: regular - Abdomen Abdomen: soft, tender - Genitourinary Penis is uncircumcised. Right scrotum is somewhat inflamed. The right testicle and epididymis are indurated. It is difficult to distinguish the testicle from the epididymis. The left is normal. - Integumentary no rash, no growths - Neurologic normal coordination, normal sensation - Musculoskeletal normal gait, normal posture - Psychiatric oriented to time, oriented to person, oriented to place, speech is normal, memory intact Results - Labs 11/25/19 07:44 11/25/19 07:44 Abnormal Lab Results - Last 24 Hours (Table) 11/24/19 11/25/19 11/25/19 Range/Units 20:33 06:47 07:44 WBC 14.2 H (3.8-10.6) k/uL RBC 3.47 L (4.30-5.90) m/uL Hgb 11.2 L (13.0-17.5) gm/dL Hct 34.3 L (39.0-53.0) % Neutrophils # 12.3 H (1.3-7.7) k/uL Lymphocytes # 0.6 L (1.0-4.8) k/uL BUN (9-20) mg/dL Glucose (74-99) mg/dL POC Glucose (mg/dL) 150 H 155 H (75-99) mg/dL Calcium (8.4-10.2) mg/dL 11/25/19 11/25/19 11/25/19 Range/Units 07:44 11:17 16:24 WBC (3.8-10.6) k/uL RBC (4.30-5.90) m/uL Hgb (13.0-17.5) gm/dL Hct (39.0-53.0) % Neutrophils # (1.3-7.7) k/uL Lymphocytes # (1.0-4.8) k/uL BUN 8 L (9-20) mg/dL Glucose 137 H (74-99) mg/dL POC Glucose (mg/dL) 153 H 209 H (75-99) mg/dL Calcium 8.3 L (8.4-10.2) mg/dL Microbiology - Last 24 Hours (Table) 11/23/19 16:32 Urine Culture - Final Urine,Catheterized Diabetes panel 11/25/19 Range/Units 07:44 Sodium 137 (137-145) mmol/L Potassium 3.6 (3.5-5.1) mmol/L Chloride 102 (98-107) mmol/L Carbon Dioxide 30 (22-30) mmol/L BUN 8 L (9-20) mg/dL Creatinine 0.72 (0.66-1.25) mg/dL Glucose 137 H (74-99) mg/dL Calcium 8.3 L (8.4-10.2) mg/dL Calcium panel 11/25/19 Range/Units 07:44 Calcium 8.3 L (8.4-10.2) mg/dL Pituitary panel 11/25/19 Range/Units 07:44 Sodium 137 (137-145) mmol/L Potassium 3.6 (3.5-5.1) mmol/L Chloride 102 (98-107) mmol/L Carbon Dioxide 30 (22-30) mmol/L BUN 8 L (9-20) mg/dL Creatinine 0.72 (0.66-1.25) mg/dL Glucose 137 H (74-99) mg/dL Calcium 8.3 L (8.4-10.2) mg/dL Adrenal panel 11/25/19 Range/Units 07:44 Sodium 137 (137-145) mmol/L Potassium 3.6 (3.5-5.1) mmol/L Chloride 102 (98-107) mmol/L Carbon Dioxide 30 (22-30) mmol/L BUN 8 L (9-20) mg/dL Creatinine 0.72 (0.66-1.25) mg/dL Glucose 137 H (74-99) mg/dL Calcium 8.3 L (8.4-10.2) mg/dL - Imaging CT scan - abdomen: report reviewed, image reviewed CT scan - pelvis: report reviewed, image reviewed Assessment and Plan Assessment: Impression: Postoperative urinary retention probably due to immobility pain and sedation. Right testicular pain and swelling of indeterminate cause. Since the patient has had a vasectomy the inflammation is not due to retrograde passage of urine and/or bacteria. Recommendations: If he has problems urinating later today catheter was replaced. It should remain in until he is ambulatory. He has been started on Flomax. With regard to the testicle I will obtain an ultrasound just to assess the intrascrotal contents on the right as it is difficult to tell from examination. Time with Patient: Greater than 30
--- NOTE | 2019-11-25 19:52 | US ---
EXAMINATION TYPE: US scrotum with doppler. Grayscale and color Doppler Duplex imaging performed of t he scrotum. DATE OF EXAM: 11/25/2019 COMPARISON: NONE CLINICAL HISTORY: right testicular pain. Right testicular pain swelling and redness x couple days EXAM MEASUREMENTS: TESTICLES: Right Testicle: 3.5 x 2.8 x 3.4 cm, heterogeneous Left Testicle: 3.4 x 2.4 x 2.8 cm, homogeneous EPIDIDYMIS HEAD: Right Epididymis: 1.0 x 1.5 x 2.1 cm Left Epididymis: 0.8 x 1.4 x 1.5 cm Doppler performed to assess for testicular vascularity; good bilateral color flow and waveforms are s een. There is no evidence of testicular torsion. Presence of hydroceles: right 2.2cm with septations, left 2.5cm Presence of varicoceles: no IMPRESSION: There is heterogeneity in the right testicle without a discrete mass and suggestive of or chitis. There is complex right-sided hydrocele. No evidence of epididymal mass. Enlarged right epidid ymis compared to the left. No testicular torsion. Findings are consistent with epididymitis and orchitis.
[2019-11-25 20:22] LABS: Glucose,Whole Blood 225 mg/dL (75-99)
[2019-11-26] MEDS: DEXTROSE 5%-0.9% NACL 1,000 ML IV SCH ×3 (01:46→17:17)
[2019-11-26 07:00] LABS: Glucose,Whole Blood 151 mg/dL (75-99)
[2019-11-26] MEDS: LOSARTAN 50 MG TAB PO SCH (07:39)
[2019-11-26] MEDS: ATORVASTATIN 20 MG TAB PO SCH (07:39)
[2019-11-26] MEDS: TAMSULOSIN 0.4 MG CAP.ER.24H PO SCH (07:39)
[2019-11-26] MEDS: PIPERACILLIN-TAZOBACTAM 3.375 GM in SODIUM CHLORIDE 0.9% 100 ML IVPB SCH ×2 (07:40→15:59)
[2019-11-26] MEDS: PANTOPRAZOLE 40 MG/10 ML VIAL IV SCH (07:40)
[2019-11-26] MEDS: ENOXAPARIN 40 MG/0.4 ML SYRINGE SQ SCH (07:40)
[2019-11-26] MEDS: INSULIN ASPART (NovoLOG) 100 UNIT/ML VIAL SQ SCH ×4 (07:41→20:33)
[2019-11-26 09:14] LABS: Basophils % (A) 0 %; Eosinophils # (A) 0.4 k/uL (0-0.7); Eosinophils % (A) 3 %; HCT 38.9 % (39.0-53.0); Lymphocytes # (A) 0.7 k/uL (1.0-4.8); Lymphocytes % (A) 5 %; MCH 33.4 pg (25.0-35.0); MCHC 33.5 g/dL (31.0-37.0); MCV 99.5 fL (80.0-100.0); Mean Platelet Volume 7.4; Monocytes # (A) 0.8 k/uL (0-1.0); Monocytes % (A) 6 %; Neutrophils % (A) 85 %; Platelet Count 322 k/uL (150-450); RBC 3.91 m/uL (4.30-5.90); RDW 13.7 % (11.5-15.5); WBC 14.1 k/uL (3.8-10.6)
[2019-11-26 09:25] LABS: ALT 18 U/L (4-49); AST 24 U/L (17-59); African American GFR (CKD) >90 (>60 ml/min/1.73 sqM); Albumin 2.5 g/dL (3.5-5.0); Alkaline Phosphatase 75 U/L (38-126); Anion Gap 8 mmol/L; Blood Urea Nitrogen 7 mg/dL (9-20); Calcium 8.5 mg/dL (8.4-10.2); Carbon Dioxide 25 mmol/L (22-30); Chloride 105 mmol/L (98-107); Glucose 234 mg/dL (74-99); Non-African American GFR(CKD) >90 (>60 ml/min/1.73 sqM); Potassium 3.1 mmol/L (3.5-5.1); Sodium 138 mmol/L (137-145); Total Bilirubin 1.2 mg/dL (0.2-1.3); Total Protein 4.9 g/dL (6.3-8.2)
[2019-11-26] MEDS: POTASSIUM CHLORIDE ER 10 MEQ TAB.ER.PRT PO SCH ×2 (10:45→12:20)
[2019-11-26 11:29] LABS: Glucose,Whole Blood 228 mg/dL (75-99)
--- NOTE | 2019-11-26 11:44 | P.PN ---
Subjective Progress Note Date: 11/25/19 Principal diagnosis: High-grade small bowel obstruction Testicular pain/urinary retention 64-year-old male status post small bowel resection for internal hernia, 11/20/2019. He is POD 5. His family is at bedside and has concerns for testicular pain that has been present for 2 days. Vital signs remained stable with a temp of 97.7, pulse 75, respirations 16 and blood pressure of 131/64 Lab review shows a white blood count of 14.2, hemoglobin 11.2; chemical profile is stable Patient's NG tube has been removed; continue current management and bowel function improves; consult urology for testicular pain Objective - Vital Signs Vital signs: Vital Signs Temp 97.7 F 11/25/19 07:00 Pulse 75 11/25/19 07:00 Resp 16 11/25/19 07:00 BP 131/64 11/25/19 07:00 Pulse Ox 96 11/25/19 07:00 Intake & Output 11/24/19 11/25/19 11/25/19 18:59 06:59 18:59 Intake Total 625 980 800 Output Total 1100 1938 Balance -475 -958 800 Weight 84 kg Intake: IV 625 820 800 Dextrose 5%-0.9% NaCl 1, 525 820 600 000 ml @ 75 mls/hr IV . [id number] [facility] Rx#:[id number] Piperacillin-Tazobactam 3 100 200 .375 gm In Sodium Chloride 0.9% 100 ml @ 25 mls/hr IVPB Q8HR [facility] Rx# :[id number] Intake, IV Titration 100 Amount Piperacillin-Tazobactam 3 100 .375 gm In Sodium Chloride 0.9% 100 ml @ 25 mls/hr IVPB Q8HR [facility] Rx# :[id number] Oral 60 Output: Urine 1100 1800 Uretheral (Alvarez) 1100 Post Void Residual 138 Other: Voiding Method Indwelling Catheter Toilet Urinal # Voids 1 - Exam PHYSICAL EXAMINATION: GENERAL: The patient is alert and oriented x3, not in any acute distress. Well developed, well nourished. HEENT: Pupils are round and equally reacting to light. EOMI. No scleral icterus. No conjunctival pallor. Normocephalic, atraumatic. No pharyngeal erythema. No thyromegaly. CARDIOVASCULAR: S1 and S2 present. No murmurs, rubs, or gallops. PULMONARY: Chest is clear to auscultation, no wheezing or crackles. ABDOMEN: Soft, nontender, nondistended, normoactive bowel sounds. No palpable organomegaly. MUSCULOSKELETAL: No joint swelling or deformity. EXTREMITIES: No cyanosis, clubbing, or pedal edema. NEUROLOGICAL: Gross neurological examination did not reveal any focal deficits. SKIN: No rashes. - Labs CBC & Chem 7: 11/26/19 08:54 11/26/19 08:54 Labs: Abnormal Lab Results - Last 24 Hours (Table) 11/24/19 11/24/19 11/25/19 Range/Units 16:24 20:33 06:47 WBC (3.8-10.6) k/uL RBC (4.30-5.90) m/uL Hgb (13.0-17.5) gm/dL Hct (39.0-53.0) % Neutrophils # (1.3-7.7) k/uL Lymphocytes # (1.0-4.8) k/uL BUN (9-20) mg/dL Glucose (74-99) mg/dL POC Glucose (mg/dL) 143 H 150 H 155 H (75-99) mg/dL Calcium (8.4-10.2) mg/dL 11/25/19 11/25/19 11/25/19 Range/Units 07:44 07:44 11:17 WBC 14.2 H (3.8-10.6) k/uL RBC 3.47 L (4.30-5.90) m/uL Hgb 11.2 L (13.0-17.5) gm/dL Hct 34.3 L (39.0-53.0) % Neutrophils # 12.3 H (1.3-7.7) k/uL Lymphocytes # 0.6 L (1.0-4.8) k/uL BUN 8 L (9-20) mg/dL Glucose 137 H (74-99) mg/dL POC Glucose (mg/dL) 153 H (75-99) mg/dL Calcium 8.3 L (8.4-10.2) mg/dL Microbiology - Last 24 Hours (Table) 11/23/19 16:32 Urine Culture - Final Urine,Catheterized Assessment and Plan Assessment: 1. High-grade small bowel obstruction; NG tube was removed; patient remains nothing by mouth till bowel function returns; surgery is following; continue with IV fluid hydration 2. Testicular pain/urinary retention; patient is recommended testicular support; consult urology for further recommendations 3. Gastric thickening; revealed on CT abdomen; possible gastritis; continue treatment with PPI 4. Uncontrolled hypertension; losartan 100 mg daily with parameters 5. Hyperlipidemia; patient remains on Lipitor 20 mg by mouth daily 6. Diabetes mellitus type 2; monitor Accu-Cheks every before meals and at bedtime with insulin sliding scale DVT prophylaxis; subcu Lovenox CODE STATUS; full code
--- NOTE | 2019-11-26 12:08 | P.PN ---
Subjective Progress Note Date: 11/26/19 CHIEF COMPLAINT: Small bowel obstruction HISTORY OF PRESENT ILLNESS: The patient is a 64-year-old male status post small bowel resection for internal hernia, 11/20/2019. He is POD 6. He is passing flatu s. He also complained of testicular pain. He was seen by the urologist yesterday. Additional studies performed of the testicle. He has been on a clear liquid tray beyond 5 days. Additionally, hair catheter was placed due to recurrent urinary retention. ROS: No reports of nausea and vomiting. No bowel movements. No fevers or chills. No new chest pain. No productive sputum PHYSICAL EXAM: VITAL SIGNS: Reviewed CONSTITUTIONAL: Well developed and in no acute distress. EYES: Conjuctivae without sclera icterus. Extraocular movements grossly intact. HEAD, EARS, NOSE, THROAT: Moist buccal mucosa. Head is atraumatic, normocephalic. Hears conversational speech. No nasal drainage. NECK: Supple. No thyroidomegaly. RESPIRATORY: Non-labored respirations and equal bilateral excursions. CARDIOVASCULAR: Palpable 2+ radial pulses. ABDOMEN: No peritonitis. Abdominal binder present MS: Fingers evaluated. Sensation intact and warm to touch. No cyanosis or edema SKIN: Good skin turgor. Well perfused. NEUROLOGIC: Cranial nerves II through XII grossly intact. No focal or lateralizing signs. PSYCH: Appropriate affect. Alert and oriented to person, place and time. LABS: Reviewed. RADIOLOGY: US scrotum shows complex right hydrocele including orchitis and epididymitis. No scrotal torsion ASSESSMENT: 1. Small bowel obstruction, resolving 2. Orchitis, right, new 3. Epididymitis, right, new 4. Urinary retention PLAN: 1. Advance diet to low fiber 2. Management of urinary retention and testicular pain per urology Objective - Vital Signs Vital signs: Vital Signs Temp 98.1 F 11/26/19 07:00 Pulse 77 11/26/19 07:00 Resp 16 11/26/19 07:00 BP 150/71 11/26/19 07:00 Pulse Ox 94 L 11/26/19 07:00 Intake & Output 11/25/19 11/26/19 11/26/19 18:59 06:59 18:59 Intake Total 800 1320 800 Output Total 1300 1650 Balance -500 -330 800 Intake: IV 800 1100 800 Dextrose 5%-0.9% NaCl 1, 600 1100 600 000 ml @ 75 mls/hr IV . [id number] [facility] Rx#:[id number] Piperacillin-Tazobactam 3 200 200 .375 gm In Sodium Chloride 0.9% 100 ml @ 25 mls/hr IVPB Q8HR [facility] Rx# :[id number] Intake, IV Titration 100 Amount Piperacillin-Tazobactam 3 100 .375 gm In Sodium Chloride 0.9% 100 ml @ 25 mls/hr IVPB Q8HR [facility] Rx# :[id number] Oral 120 Output: Urine 1300 1650 Straight 1300 Other: Voiding Method Indwelling Catheter - Labs CBC & Chem 7: 11/26/19 08:54 11/26/19 08:54 Labs: Abnormal Lab Results - Last 24 Hours (Table) 11/25/19 11/25/19 11/26/19 Range/Units 16:24 20:20 06:58 WBC (3.8-10.6) k/uL RBC (4.30-5.90) m/uL Hct (39.0-53.0) % Neutrophils # (1.3-7.7) k/uL Lymphocytes # (1.0-4.8) k/uL Potassium (3.5-5.1) mmol/L BUN (9-20) mg/dL Glucose (74-99) mg/dL POC Glucose (mg/dL) 209 H 225 H 151 H (75-99) mg/dL Total Protein (6.3-8.2) g/dL Albumin (3.5-5.0) g/dL 11/26/19 11/26/19 11/26/19 Range/Units 08:54 08:54 11:27 WBC 14.1 H (3.8-10.6) k/uL RBC 3.91 L (4.30-5.90) m/uL Hct 38.9 L (39.0-53.0) % Neutrophils # 12.0 H (1.3-7.7) k/uL Lymphocytes # 0.7 L (1.0-4.8) k/uL Potassium 3.1 L (3.5-5.1) mmol/L BUN 7 L (9-20) mg/dL Glucose 234 H (74-99) mg/dL POC Glucose (mg/dL) 228 H (75-99) mg/dL Total Protein 4.9 L (6.3-8.2) g/dL Albumin 2.5 L (3.5-5.0) g/dL Assessment and Plan (1) Internal hernia Current Visit: Yes Status: Acute Code(s): K45.8 - OTH ABDOMINAL HERNIA WITHOUT OBSTRUCTION OR GANGRENE SNOMED Code(s): 38055685 (2) Testicular pain Current Visit: Yes Status: Acute Code(s): N50.819 - TESTICULAR PAIN, UNSPECIFIED SNOMED Code(s): 90866024 (3) Small bowel obstruction Current Visit: Yes Status: Acute Code(s): K56.609 - UNSP INTESTNL OBST, UNSP TO PARTIAL VERSUS COMPLETE OBST SNOMED Code(s): 795699207 (4) Orchitis and epididymitis Current Visit: Yes Status: Acute Code(s): N45.3 - EPIDIDYMO-ORCHITIS SNOMED Code(s): 608817298
--- NOTE | 2019-11-26 14:09 | P.PN ---
Subjective Progress Note Date: 11/26/19 The patient is from [place]. He presented with a bowel obstruction. This was surgically repaired. He has had postoperative urinary retention as well as right testicular swelling. He has had a vasectomy. I could not really feel the testicle very well yesterday therefore an ultrasound was obtained identifying an inflamed testicle and epididymis consistent with an epididymal orchitis. This is on the right side. I suspect this is blood borne or inflammatory due to cord irritation from the bowel obstruction. He has been given an ice pack in support he feels a little better today. The exam is unchanged. He also had pre-and postoperative urinary retention. He has an indwelling catheter. He denies problems prior to the hospitalization. He has been placed on Flomax. I would leave indwelling catheter until just prior to discharge in which case I would pull it for a voiding trial. If he continues with problems he will need to be seen as an outpatient in [place] or here. Objective - Vital Signs Vital signs: Vital Signs Temp 98.1 F 11/26/19 07:00 Pulse 77 11/26/19 07:00 Resp 16 11/26/19 07:00 BP 150/71 11/26/19 07:00 Pulse Ox 94 L 11/26/19 07:00 Intake & Output 11/25/19 11/26/19 11/26/19 18:59 06:59 18:59 Intake Total 800 1320 800 Output Total 1300 1650 Balance -500 -330 800 Weight 84 kg Intake: IV 800 1100 800 Dextrose 5%-0.9% NaCl 1, 600 1100 600 000 ml @ 75 mls/hr IV . [id number] [facility] Rx#:[id number] Piperacillin-Tazobactam 3 200 200 .375 gm In Sodium Chloride 0.9% 100 ml @ 25 mls/hr IVPB Q8HR [facility] Rx# :[id number] Intake, IV Titration 100 Amount Piperacillin-Tazobactam 3 100 .375 gm In Sodium Chloride 0.9% 100 ml @ 25 mls/hr IVPB Q8HR [facility] Rx# :[id number] Oral 120 Output: Urine 1300 1650 Straight 1300 Other: Voiding Method Indwelling Catheter - Labs CBC & Chem 7: 11/26/19 08:54 11/26/19 08:54 Labs: Abnormal Lab Results - Last 24 Hours (Table) 11/25/19 11/25/19 11/26/19 Range/Units 16:24 20:20 06:58 WBC (3.8-10.6) k/uL RBC (4.30-5.90) m/uL Hct (39.0-53.0) % Neutrophils # (1.3-7.7) k/uL Lymphocytes # (1.0-4.8) k/uL Potassium (3.5-5.1) mmol/L BUN (9-20) mg/dL Glucose (74-99) mg/dL POC Glucose (mg/dL) 209 H 225 H 151 H (75-99) mg/dL Total Protein (6.3-8.2) g/dL Albumin (3.5-5.0) g/dL 11/26/19 11/26/19 11/26/19 Range/Units 08:54 08:54 11:27 WBC 14.1 H (3.8-10.6) k/uL RBC 3.91 L (4.30-5.90) m/uL Hct 38.9 L (39.0-53.0) % Neutrophils # 12.0 H (1.3-7.7) k/uL Lymphocytes # 0.7 L (1.0-4.8) k/uL Potassium 3.1 L (3.5-5.1) mmol/L BUN 7 L (9-20) mg/dL Glucose 234 H (74-99) mg/dL POC Glucose (mg/dL) 228 H (75-99) mg/dL Total Protein 4.9 L (6.3-8.2) g/dL Albumin 2.5 L (3.5-5.0) g/dL
[2019-11-26 16:29] LABS: Glucose,Whole Blood 234 mg/dL (75-99)
--- NOTE | 2019-11-26 17:41 | P.PN ---
Subjective Progress Note Date: 11/26/19 Principal diagnosis: High-grade small bowel obstruction Testicular pain/urinary retention 64-year-old male status post small bowel resection for internal hernia, 11/20/2019. He is POD 5. His family is at bedside and has concerns for testicular pain that has been present for 2 days. Vital signs remained stable with a temp of 97.7, pulse 75, respirations 16 and blood pressure of 131/64 Lab review shows a white blood count of 14.2, hemoglobin 11.2; chemical profile is stable Patient's NG tube has been removed; continue current management and bowel function improves; consult urology for testicular pain 11/26/2019 Patient is seen and evaluated in room at bedside; continues to complain of testicular pain and urinary retention Patient has been evaluated by urology; patient has an indwelling catheter- neurology is recommending to leave catheter just prior to discharge at which time it will be pulled for voiding trial; testicular ultrasound is recommended for further evaluation Surgery is following for small bowel obstruction which is slowly dissolving; patient is advanced to a low fiber diet Objective - Vital Signs Vital signs: Vital Signs Temp 98.1 F 11/26/19 07:00 Pulse 77 11/26/19 07:00 Resp 16 11/26/19 07:00 BP 150/71 11/26/19 07:00 Pulse Ox 94 L 11/26/19 07:00 Intake & Output 11/25/19 11/26/19 11/26/19 18:59 06:59 18:59 Intake Total 800 1320 Output Total 1300 1650 Balance -500 -330 Intake: IV 800 1100 Dextrose 5%-0.9% NaCl 1, 600 1100 000 ml @ 75 mls/hr IV . [id number] [facility] Rx#:[id number] Piperacillin-Tazobactam 3 200 .375 gm In Sodium Chloride 0.9% 100 ml @ 25 mls/hr IVPB Q8HR [facility] Rx# :[id number] Intake, IV Titration 100 Amount Piperacillin-Tazobactam 3 100 .375 gm In Sodium Chloride 0.9% 100 ml @ 25 mls/hr IVPB Q8HR [facility] Rx# :[id number] Oral 120 Output: Urine 1300 1650 Straight 1300 Other: Voiding Method Indwelling Catheter - Exam PHYSICAL EXAMINATION: GENERAL: The patient is alert and oriented x3, not in any acute distress. Well developed, well nourished. HEENT: Pupils are round and equally reacting to light. EOMI. No scleral icterus. No conjunctival pallor. Normocephalic, atraumatic. No pharyngeal erythema. No thyromegaly. CARDIOVASCULAR: S1 and S2 present. No murmurs, rubs, or gallops. PULMONARY: Chest is clear to auscultation, no wheezing or crackles. ABDOMEN: Soft, nontender, nondistended, normoactive bowel sounds. No palpable organomegaly. MUSCULOSKELETAL: No joint swelling or deformity. EXTREMITIES: No cyanosis, clubbing, or pedal edema. NEUROLOGICAL: Gross neurological examination did not reveal any focal deficits. SKIN: No rashes. - Labs CBC & Chem 7: 11/26/19 08:54 11/26/19 08:54 Labs: Abnormal Lab Results - Last 24 Hours (Table) 11/25/19 11/25/19 11/26/19 Range/Units 16:24 20:20 06:58 WBC (3.8-10.6) k/uL RBC (4.30-5.90) m/uL Hct (39.0-53.0) % Neutrophils # (1.3-7.7) k/uL Lymphocytes # (1.0-4.8) k/uL Potassium (3.5-5.1) mmol/L BUN (9-20) mg/dL Glucose (74-99) mg/dL POC Glucose (mg/dL) 209 H 225 H 151 H (75-99) mg/dL Total Protein (6.3-8.2) g/dL Albumin (3.5-5.0) g/dL 11/26/19 11/26/19 11/26/19 Range/Units 08:54 08:54 11:27 WBC 14.1 H (3.8-10.6) k/uL RBC 3.91 L (4.30-5.90) m/uL Hct 38.9 L (39.0-53.0) % Neutrophils # 12.0 H (1.3-7.7) k/uL Lymphocytes # 0.7 L (1.0-4.8) k/uL Potassium 3.1 L (3.5-5.1) mmol/L BUN 7 L (9-20) mg/dL Glucose 234 H (74-99) mg/dL POC Glucose (mg/dL) 228 H (75-99) mg/dL Total Protein 4.9 L (6.3-8.2) g/dL Albumin 2.5 L (3.5-5.0) g/dL Assessment and Plan Assessment: 1. High-grade small bowel obstruction; NG tube was removed; patient remains nothing by mouth till bowel function returns; surgery is following; continue with IV fluid hydration 2. Testicular pain/urinary retention; patient is recommended testicular support; consult urology for further recommendations 3. Gastric thickening; revealed on CT abdomen; possible gastritis; continue treatment with PPI 4. Uncontrolled hypertension; losartan 100 mg daily with parameters 5. Hyperlipidemia; patient remains on Lipitor 20 mg by mouth daily 6. Diabetes mellitus type 2; monitor Accu-Cheks every before meals and at bedtime with insulin sliding scale DVT prophylaxis; subcu Lovenox CODE STATUS; full code Time with Patient: Greater than 30
[2019-11-26 20:15] LABS: Glucose,Whole Blood 204 mg/dL (75-99)
[2019-11-27] MEDS: PIPERACILLIN-TAZOBACTAM 3.375 GM in SODIUM CHLORIDE 0.9% 100 ML IVPB SCH ×4 (00:05→23:36)
[2019-11-27] MEDS: DEXTROSE 5%-0.9% NACL 1,000 ML IV SCH ×3 (04:22→20:52)
[2019-11-27 06:37] LABS: Glucose,Whole Blood 140 mg/dL (75-99)
[2019-11-27 07:45] LABS: African American GFR (CKD) >90 (>60 ml/min/1.73 sqM); Anion Gap 5 mmol/L; Blood Urea Nitrogen 9 mg/dL (9-20); Carbon Dioxide 27 mmol/L (22-30); Chloride 107 mmol/L (98-107); Glucose 146 mg/dL (74-99); Non-African American GFR(CKD) >90 (>60 ml/min/1.73 sqM); Potassium 3.3 mmol/L (3.5-5.1); Sodium 139 mmol/L (137-145)
[2019-11-27 08:16] LABS: Basophils % (A) 0 %; Eosinophils # (A) 0.4 k/uL (0-0.7); Eosinophils % (A) 4 %; HCT 35.1 % (39.0-53.0); HGB 11.6 gm/dL (13.0-17.5); Lymphocytes % (A) 11 %; MCH 32.8 pg (25.0-35.0); MCHC 33.1 g/dL (31.0-37.0); MCV 99.1 fL (80.0-100.0); Mean Platelet Volume 7.3; Monocytes # (A) 0.6 k/uL (0-1.0); Monocytes % (A) 6 %; Neutrophils # (A) 7.5 k/uL (1.3-7.7); Neutrophils % (A) 79 %; Platelet Count 293 k/uL (150-450); RBC 3.54 m/uL (4.30-5.90); RDW 13.6 % (11.5-15.5); WBC 9.5 k/uL (3.8-10.6)
[2019-11-27] MEDS: LOSARTAN 50 MG TAB PO SCH (08:24)
[2019-11-27] MEDS: ENOXAPARIN 40 MG/0.4 ML SYRINGE SQ SCH (08:24)
[2019-11-27] MEDS: TAMSULOSIN 0.4 MG CAP.ER.24H PO SCH (08:24)
[2019-11-27] MEDS: PANTOPRAZOLE 40 MG TABLET PO SCH (08:24)
[2019-11-27] MEDS: INSULIN ASPART (NovoLOG) 100 UNIT/ML VIAL SQ SCH ×4 (08:24→20:40)
[2019-11-27] MEDS: ATORVASTATIN 20 MG TAB PO SCH (08:24)
[2019-11-27 11:32] LABS: Glucose,Whole Blood 201 mg/dL (75-99)
--- NOTE | 2019-11-27 13:03 | P.PN ---
Subjective Progress Note Date: 11/27/19 No acute overnight event, pain and swelling improving. Denies any fever/chills Objective - Vital Signs Vital signs: Vital Signs Temp 98 F 11/27/19 11:53 Pulse 73 11/27/19 11:53 Resp 20 11/27/19 11:53 BP 150/79 11/27/19 11:53 Pulse Ox 96 11/27/19 11:53 Intake & Output 11/26/19 11/27/19 11/27/19 18:59 06:59 18:59 Intake Total 800 100 Output Total 1700 1550 900 Balance -900 -1450 -900 Weight 84 kg Intake: IV 800 Dextrose 5%-0.9% NaCl 1, 600 000 ml @ 75 mls/hr IV . [id number] [facility] Rx#:[id number] Piperacillin-Tazobactam 3 200 .375 gm In Sodium Chloride 0.9% 100 ml @ 25 mls/hr IVPB Q8HR [facility] Rx# :[id number] Intake, IV Titration 100 Amount Piperacillin-Tazobactam 3 100 .375 gm In Sodium Chloride 0.9% 100 ml @ 25 mls/hr IVPB Q8HR [facility] Rx# :[id number] Output: Urine 1700 1550 900 Other: Voiding Method Indwelling Catheter Indwelling Catheter # Voids 1 - Constitutional General appearance: Present: no acute distress - Gastrointestinal General gastrointestinal: Absent: distended, rigid, soft - Genitourinary Genitourinary Comment(s): right testicle swollen and indurated. No fluctance appreciated - Psychiatric Psychiatric: Present: A&O x's 3 - Labs CBC & Chem 7: 11/27/19 06:57 11/27/19 06:57 Labs: Abnormal Lab Results - Last 24 Hours (Table) 11/26/19 11/26/19 11/27/19 Range/Units 16:27 20:12 06:36 RBC (4.30-5.90) m/uL Hgb (13.0-17.5) gm/dL Hct (39.0-53.0) % Potassium (3.5-5.1) mmol/L Creatinine (0.66-1.25) mg/dL Glucose (74-99) mg/dL POC Glucose (mg/dL) 234 H 204 H 140 H (75-99) mg/dL Calcium (8.4-10.2) mg/dL 11/27/19 11/27/19 11/27/19 Range/Units 06:57 06:57 11:31 RBC 3.54 L (4.30-5.90) m/uL Hgb 11.6 L (13.0-17.5) gm/dL Hct 35.1 L (39.0-53.0) % Potassium 3.3 L (3.5-5.1) mmol/L Creatinine 0.64 L (0.66-1.25) mg/dL Glucose 146 H (74-99) mg/dL POC Glucose (mg/dL) 201 H (75-99) mg/dL Calcium 8.0 L (8.4-10.2) mg/dL Assessment and Plan Assessment: 64 yo male admitted with SBO, urology is counsulted with right sided orchitis, and urinary retention -Continue IV Abx, can transition to bactrim once ready for discharge. Will need 14 days of abx -Alvarez for 1 week, will continue flomax
--- NOTE | 2019-11-27 15:55 | P.PN ---
Progress Note - Text Progress Note Date: 11/27/19 The patient states he feels better. He has passed some gas. On exam vital signs are still. Abdomen soft. Incision sites clean and intact. Status post small bowel resection for internal hernia with straining dilation. Patient will have his diet advanced slowly.
[2019-11-27 16:38] LABS: Glucose,Whole Blood 169 mg/dL (75-99)
--- NOTE | 2019-11-27 17:09 | P.PN ---
Subjective Progress Note Date: 11/27/19 Principal diagnosis: High-grade small bowel obstruction Testicular pain/urinary retention 64-year-old male status post small bowel resection for internal hernia, 11/20/2019. He is POD 5. His family is at bedside and has concerns for testicular pain that has been present for 2 days. Vital signs remained stable with a temp of 97.7, pulse 75, respirations 16 and blood pressure of 131/64 Lab review shows a white blood count of 14.2, hemoglobin 11.2; chemical profile is stable Patient's NG tube has been removed; continue current management and bowel function improves; consult urology for testicular pain 11/26/2019 Patient is seen and evaluated in room at bedside; continues to complain of testicular pain and urinary retention Patient has been evaluated by urology; patient has an indwelling catheter- neurology is recommending to leave catheter just prior to discharge at which time it will be pulled for voiding trial; testicular ultrasound is recommended for further evaluation Surgery is following for small bowel obstruction which is slowly dissolving; patient is advanced to a low fiber diet 11/27/2019 Patient is seen and evaluated in room with family members at bedside; reports improvement in testicular pain; patient and family had detailed discussion with urologist and had no further questions Urology has evaluated patient and is started on IV antibiotics for right-sided orchitis with recommendations to transition to Bactrim and patient is ready for discharge; a total of 14 day antibiotic therapy is recommended; patient has been started on Flomax and will continue with Alvarez catheter post discharge until pat ient is seen by urology Patient is being followed by surgery and recommending to continue with current management and slow advancement in diet as bowel function improves Objective - Vital Signs Vital signs: Vital Signs Temp 98 F 11/27/19 11:53 Pulse 73 11/27/19 11:53 Resp 20 11/27/19 11:53 BP 150/79 11/27/19 11:53 Pulse Ox 96 11/27/19 11:53 Intake & Output 11/26/19 11/27/19 11/27/19 18:59 06:59 18:59 Intake Total 800 100 Output Total 1700 1550 900 Balance -900 -1450 -900 Weight 84 kg Intake: IV 800 Dextrose 5%-0.9% NaCl 1, 600 000 ml @ 75 mls/hr IV . [id number] [facility] Rx#:[id number] Piperacillin-Tazobactam 3 200 .375 gm In Sodium Chloride 0.9% 100 ml @ 25 mls/hr IVPB Q8HR [facility] Rx# :[id number] Intake, IV Titration 100 Amount Piperacillin-Tazobactam 3 100 .375 gm In Sodium Chloride 0.9% 100 ml @ 25 mls/hr IVPB Q8HR [facility] Rx# :[id number] Output: Urine 1700 1550 900 Other: Voiding Method Indwelling Catheter Indwelling Catheter # Voids 1 - Exam PHYSICAL EXAMINATION: GENERAL: The patient is alert and oriented x3, not in any acute distress. Well developed, well nourished. HEENT: Pupils are round and equally reacting to light. EOMI. No scleral icterus. No conjunctival pallor. Normocephalic, atraumatic. No pharyngeal erythema. No thyromegaly. CARDIOVASCULAR: S1 and S2 present. No murmurs, rubs, or gallops. PULMONARY: Chest is clear to auscultation, no wheezing or crackles. ABDOMEN: Soft, nontender, nondistended, normoactive bowel sounds. No palpable organomegaly. MUSCULOSKELETAL: No joint swelling or deformity. EXTREMITIES: No cyanosis, clubbing, or pedal edema. NEUROLOGICAL: Gross neurological examination did not reveal any focal deficits. SKIN: No rashes. - Labs CBC & Chem 7: 11/27/19 06:57 11/27/19 06:57 Labs: Abnormal Lab Results - Last 24 Hours (Table) 11/26/19 11/26/19 11/27/19 Range/Units 16:27 20:12 06:36 RBC (4.30-5.90) m/uL Hgb (13.0-17.5) gm/dL Hct (39.0-53.0) % Potassium (3.5-5.1) mmol/L Creatinine (0.66-1.25) mg/dL Glucose (74-99) mg/dL POC Glucose (mg/dL) 234 H 204 H 140 H (75-99) mg/dL Calcium (8.4-10.2) mg/dL 11/27/19 11/27/19 11/27/19 Range/Units 06:57 06:57 11:31 RBC 3.54 L (4.30-5.90) m/uL Hgb 11.6 L (13.0-17.5) gm/dL Hct 35.1 L (39.0-53.0) % Potassium 3.3 L (3.5-5.1) mmol/L Creatinine 0.64 L (0.66-1.25) mg/dL Glucose 146 H (74-99) mg/dL POC Glucose (mg/dL) 201 H (75-99) mg/dL Calcium 8.0 L (8.4-10.2) mg/dL Assessment and Plan Assessment: 1. High-grade small bowel obstruction; NG tube was removed; patient remains nothing by mouth till bowel function returns; surgery is following; continue with IV fluid hydration 2. Testicular pain/urinary retention; patient is recommended testicular support; consult urology for further recommendations 3. Gastric thickening; revealed on CT abdomen; possible gastritis; continue treatment with PPI 4. Uncontrolled hypertension; losartan 100 mg daily with parameters 5. Hyperlipidemia; patient remains on Lipitor 20 mg by mouth daily 6. Diabetes mellitus type 2; monitor Accu-Cheks every before meals and at bedtime with insulin sliding scale DVT prophylaxis; subcu Lovenox CODE STATUS; full code
[2019-11-27 20:26] LABS: Glucose,Whole Blood 162 mg/dL (75-99)
[2019-11-28 06:52] LABS: Glucose,Whole Blood 138 mg/dL (75-99)
[2019-11-28] MEDS: INSULIN ASPART (NovoLOG) 100 UNIT/ML VIAL SQ SCH ×4 (07:11→20:45)
[2019-11-28] MEDS: ENOXAPARIN 40 MG/0.4 ML SYRINGE SQ SCH (08:22)
[2019-11-28] MEDS: ATORVASTATIN 20 MG TAB PO SCH (08:22)
[2019-11-28] MEDS: LOSARTAN 50 MG TAB PO SCH (08:22)
[2019-11-28] MEDS: PIPERACILLIN-TAZOBACTAM 3.375 GM in SODIUM CHLORIDE 0.9% 100 ML IVPB SCH ×2 (08:22→17:41)
[2019-11-28] MEDS: PANTOPRAZOLE 40 MG TABLET PO SCH (08:22)
[2019-11-28] MEDS: TAMSULOSIN 0.4 MG CAP.ER.24H PO SCH (08:22)
[2019-11-28 11:44] LABS: Glucose,Whole Blood 158 mg/dL (75-99)
[2019-11-28] MEDS: DEXTROSE 5%-0.9% NACL 1,000 ML IV SCH ×2 (12:23→17:43)
--- NOTE | 2019-11-28 17:22 | P.PN ---
Progress Note - Text Progress Note Date: 11/28/19 Patient still has had no significant bowel function. He is tolerating clears. On exam vital signs are stable. Abdomen soft. Patient will have his Alvarez catheter removed today. We'll advance his diet once he has return of bowel function.
[2019-11-28 17:47] LABS: Glucose,Whole Blood 170 mg/dL (75-99)
[2019-11-28 20:24] LABS: Glucose,Whole Blood 207 mg/dL (75-99)
[2019-11-29] MEDS: PIPERACILLIN-TAZOBACTAM 3.375 GM in SODIUM CHLORIDE 0.9% 100 ML IVPB SCH ×3 (00:33→16:23)
[2019-11-29 06:52] LABS: Glucose,Whole Blood 209 mg/dL (75-99)
[2019-11-29] MEDS: LOSARTAN 50 MG TAB PO SCH (08:00)
[2019-11-29] MEDS: ENOXAPARIN 40 MG/0.4 ML SYRINGE SQ SCH (08:01)
[2019-11-29] MEDS: TAMSULOSIN 0.4 MG CAP.ER.24H PO SCH (08:01)
[2019-11-29] MEDS: PANTOPRAZOLE 40 MG TABLET PO SCH (08:01)
[2019-11-29] MEDS: ATORVASTATIN 20 MG TAB PO SCH (08:01)
[2019-11-29] MEDS: INSULIN ASPART (NovoLOG) 100 UNIT/ML VIAL SQ SCH ×4 (08:01→21:30)
[2019-11-29] MEDS ORDERED: NA PHOS,M-B/NA PHOS,DI-BA 133 ML ENEMA RECTAL ONE (10:00)
--- NOTE | 2019-11-29 11:12 | P.PN ---
Progress Note - Text Progress Note Date: 11/29/19 The patient states he feels constipated. He had a very small hard bowel movement. On exam vital signs are stable. Abdomen soft. It. Patient received a Fleet enema today. He'll remain on clear liquids.
[2019-11-29 11:25] LABS: Glucose,Whole Blood 207 mg/dL (75-99)
[2019-11-29 16:22] LABS: Glucose,Whole Blood 225 mg/dL (75-99)
[2019-11-29] MEDS: DEXTROSE 5%-0.9% NACL 1,000 ML IV SCH (16:24)
[2019-11-29] MEDS: IOPAMIDOL CONTRAST (ORAL USE) VIAL PO PRN ×2 (18:21→19:31)
[2019-11-29 19:11] LABS: Basophils # (A) 0.1 k/uL (0-0.2); Basophils % (A) 1 %; Eosinophils # (A) 0.3 k/uL (0-0.7); Eosinophils % (A) 3 %; HCT 37.3 % (39.0-53.0); HGB 12.1 gm/dL (13.0-17.5); Lymphocytes # (A) 0.7 k/uL (1.0-4.8); Lymphocytes % (A) 6 %; MCH 32.2 pg (25.0-35.0); MCHC 32.4 g/dL (31.0-37.0); MCV 99.3 fL (80.0-100.0); Mean Platelet Volume 7.3; Monocytes # (A) 0.6 k/uL (0-1.0); Monocytes % (A) 6 %; Neutrophils # (A) 8.9 k/uL (1.3-7.7); Neutrophils % (A) 83 %; Platelet Count 279 k/uL (150-450); RBC 3.76 m/uL (4.30-5.90); RDW 13.5 % (11.5-15.5); WBC 10.7 k/uL (3.8-10.6)
[2019-11-29 19:27] LABS: African American GFR (CKD) >90 (>60 ml/min/1.73 sqM); Anion Gap 7 mmol/L; Blood Urea Nitrogen 11 mg/dL (9-20); Calcium 8.4 mg/dL (8.4-10.2); Carbon Dioxide 25 mmol/L (22-30); Chloride 104 mmol/L (98-107); Glucose 209 mg/dL (74-99); Non-African American GFR(CKD) >90 (>60 ml/min/1.73 sqM); Potassium 3.5 mmol/L (3.5-5.1); Sodium 136 mmol/L (137-145)
--- NOTE | 2019-11-29 21:08 | CT ---
EXAMINATION TYPE: CT abdomen pelvis w con DATE OF EXAM: 11/29/2019 COMPARISON: Prior CT 11/19/2019 HISTORY: abdominal pain, constipation CT DLP: 1438.2 mGycm Automated exposure control for dose reduction was used. TECHNIQUE: Helical acquisition of images from the lung bases through the pelvis have been completed, patient received oral and intravenous contrast. CONTRAST: Performed with Oral Contrast and with IV Contrast, patient injected with 100 mL of Isovue 300. FINDINGS: Pneumoperitoneum has developed in the interval. Subcutaneous edema, anasarca changes are pr esent. Surgical jaden are present along the anterior abdomen LUNG BASES: There is been interval development of bilateral pleural effusions and some compressive at electasis. AORTA: No significant abnormality is appreciated. LIVER/GB: No significant abnormality is appreciated. PANCREAS: No significant abnormality is seen. SPLEEN: No significant abnormality is seen. ADRENALS: No significant abnormality is seen. KIDNEYS: Retroaortic left renal vein noted incidentally. REPRODUCTIVE ORGANS: No significant abnormality is seen BOWEL: High density stool present within the rectum, rectum appears dilated, there may be rectal wal l thickening, correlate for fecal impaction, stercoral colitis. Postop changes are noted in the right lower quadrant, some local soft tissue, bowel wall thickening at this level FREE AIR: No Free Air visible. ASCITES: There is free fluid present within the abdomen. PELVIC ADENOPATHY: None visualized. RETROPERITONEAL ADENOPATHY: No Retroperitoneal Adenopathy visible. URINARY BLADDER: Alvarez catheter is in place.. OSSEOUS STRUCTURES: No significant abnormality is seen. IMPRESSION: CORRELATE FOR FECAL IMPACTION, POSSIBLE STERCORAL COLITIS. POSTOPERATIVE PNEUMOPERITONEUM, FLUID WITH IN THE ABDOMEN. Interval pleural effusions, additional findings above.
[2019-11-29 21:12] LABS: Glucose,Whole Blood 222 mg/dL (75-99)
[2019-11-30] MEDS: PIPERACILLIN-TAZOBACTAM 3.375 GM in SODIUM CHLORIDE 0.9% 100 ML IVPB SCH ×2 (00:07→08:02)
[2019-11-30] MEDS: DEXTROSE 5%-0.9% NACL 1,000 ML IV SCH (01:33)
[2019-11-30 07:07] LABS: Glucose,Whole Blood 150 mg/dL (75-99)
[2019-11-30] MEDS: TAMSULOSIN 0.4 MG CAP.ER.24H PO SCH (08:02)
[2019-11-30] MEDS: LOSARTAN 50 MG TAB PO SCH (08:02)
[2019-11-30] MEDS: ATORVASTATIN 20 MG TAB PO SCH (08:02)
[2019-11-30] MEDS: ENOXAPARIN 40 MG/0.4 ML SYRINGE SQ SCH (08:02)
[2019-11-30] MEDS: PANTOPRAZOLE 40 MG TABLET PO SCH (08:02)
[2019-11-30] MEDS: INSULIN ASPART (NovoLOG) 100 UNIT/ML VIAL SQ SCH ×4 (08:03→21:08)
[2019-11-30 11:41] LABS: Glucose,Whole Blood 243 mg/dL (75-99)
[2019-11-30 16:37] LABS: Glucose,Whole Blood 197 mg/dL (75-99)
--- NOTE | 2019-11-30 17:34 | P.PN ---
Progress Note - Text Progress Note Date: 11/30/19 Computed tomography scan performed last night shows evidence of fecal impaction. Patient did receive a soapsuds enema last night. He had limited results. He still states he can't go the bathroom. On exam vital signs are stable. Abdomen soft. Status post small bowel resection for strangulated internal hernia. Patient will receive soapsuds enemas this morning for his fecal impaction. We will advance his diet once his bowels are functional.
[2019-11-30 20:25] LABS: Glucose,Whole Blood 161 mg/dL (75-99)
--- NOTE | 2019-11-30 23:54 | P.PN ---
Subjective Progress Note Date: 11/28/19 Principal diagnosis: High-grade small bowel obstruction Testicular pain/urinary retention 64-year-old male status post small bowel resection for internal hernia, 11/20/2019. He is POD 5. His family is at bedside and has concerns for testicular pain that has been present for 2 days. Vital signs remained stable with a temp of 97.7, pulse 75, respirations 16 and blood pressure of 131/64 Lab review shows a white blood count of 14.2, hemoglobin 11.2; chemical profile is stable Patient's NG tube has been removed; continue current management and bowel function improves; consult urology for testicular pain 11/26/2019 Patient is seen and evaluated in room at bedside; continues to complain of testicular pain and urinary retention Patient has been evaluated by urology; patient has an indwelling catheter- neurology is recommending to leave catheter just prior to discharge at which time it will be pulled for voiding trial; testicular ultrasound is recommended for further evaluation Surgery is following for small bowel obstruction which is slowly dissolving; patient is advanced to a low fiber diet 11/27/2019 Patient is seen and evaluated in room with family members at bedside; reports improvement in testicular pain; patient and family had detailed discussion with urologist and had no further questions Urology has evaluated patient and is started on IV antibiotics for right-sided orchitis with recommendations to transition to Bactrim and patient is ready for discharge; a total of 14 day antibiotic therapy is recommended; patient has been started on Flomax and will continue with Alvarze catheter post discharge until patient is seen by urology Patient is being followed by surgery and recommending to continue with current management and slow advancement in diet as bowel function improves. 11/28/2019 Patient is awake alert oriented x3. Currently lying in the bed. No bowel movement today. Patient was started on clear liquids. Patient is afebrile. No complaints of chest pain or shortness of breath. Current medications reviewed. Objective - Vital Signs Vital signs: Vital Signs Temp 98.5 F 11/28/19 18:54 Pulse 82 11/28/19 18:54 Resp 16 11/28/19 18:54 BP 150/77 11/28/19 18:54 Pulse Ox 96 11/28/19 18:54 Intake & Output 11/28/19 11/28/19 11/29/19 06:59 18:59 06:59 Intake Total 225 600 Output Total 2500 1000 Balance -2275 -400 Weight 84 kg Intake: IV 225 Dextrose 5%-0.9% NaCl 1, 225 000 ml @ 75 mls/hr IV . [id number] [facility] Rx#:[id number] Intake, IV Titration 600 Amount Dextrose 5%-0.9% NaCl 1, 600 000 ml @ 75 mls/hr IV . [id number] [facility] Rx#:[id number] Output: Urine 2500 1000 Straight 1000 Other: Voiding Method Indwelling Catheter - Exam PHYSICAL EXAMINATION: GENERAL: The patient is alert and oriented x3, not in any acute distress. Well developed, well nourished. HEENT: Pupils are round and equally reacting to light. EOMI. No scleral icterus. No conjunctival pallor. Normocephalic, atraumatic. No pharyngeal erythema. No thyromegaly. CARDIOVASCULAR: S1 and S2 present. No murmurs, rubs, or gallops. PULMONARY: Chest is clear to auscultation, no wheezing or crackles. ABDOMEN: Soft, nontender, nondistended, normoactive bowel sounds. No palpable organomegaly. MUSCULOSKELETAL: No joint swelling or deformity. EXTREMITIES: No cyanosis, clubbing, or pedal edema. NEUROLOGICAL: Gross neurological examination did not reveal any focal deficits. SKIN: No rashes. - Labs CBC & Chem 7: 11/29/19 18:52 11/29/19 18:52 Labs: Abnormal Lab Results - Last 24 Hours (Table) 11/27/19 11/28/19 11/28/19 Range/Units 20:25 06:50 11:43 POC Glucose (mg/dL) 162 H 138 H 158 H (75-99) mg/dL 11/28/19 Range/Units 17:45 POC Glucose (mg/dL) 170 H (75-99) mg/dL Assessment and Plan Assessment: High-grade small bowel obstruction status post exploratory laparotomy and lysis of adhesions and bowel resection. NG tube was removed; patient remains nothing by mouth till bowel function returns. Testicular pain/urinary retention; patient is recommended testicular support; consult urology for further recommendations Thickened esophagus on the CT possible gastritis Recent history of left knee meniscal washout surgery Recent 90 LB intentional weight loss with new diet regimen Uncontrolled hypertension Hyperlipidemia Diabetes type 2 [id number] DVT prophylaxis with Lovenox subcu Plan Patient will be continued on IV hydration . s/p exp lap. clear liquids. Patient is being continued on pain management, incentive spirometry and DVT prophylaxis. Continue with insulin scale and hold metformin at this time. Continue with home blood pressure medication- losartan. We will follow closely and further recommendations based on clinical course. Time with Patient: Greater than 30
--- NOTE | 2019-11-30 23:57 | P.PN ---
Subjective Progress Note Date: 11/29/19 Principal diagnosis: High-grade small bowel obstruction Testicular pain/urinary retention 64-year-old male status post small bowel resection for internal hernia, 11/20/2019. He is POD 5. His family is at bedside and has concerns for testicular pain that has been present for 2 days. Vital signs remained stable with a temp of 97.7, pulse 75, respirations 16 and blood pressure of 131/64 Lab review shows a white blood count of 14.2, hemoglobin 11.2; chemical profile is stable Patient's NG tube has been removed; continue current management and bowel function improves; consult urology for testicular pain 11/26/2019 Patient is seen and evaluated in room at bedside; continues to complain of testicular pain and urinary retention Patient has been evaluated by urology; patient has an indwelling catheter- neurology is recommending to leave catheter just prior to discharge at which time it will be pulled for voiding trial; testicular ultrasound is recommended for further evaluation Surgery is following for small bowel obstruction which is slowly dissolving; patient is advanced to a low fiber diet 11/27/2019 Patient is seen and evaluated in room with family members at bedside; reports improvement in testicular pain; patient and family had detailed discussion with urologist and had no further questions Urology has evaluated patient and is started on IV antibiotics for right-sided orchitis with recommendations to transition to Bactrim and patient is ready for discharge; a total of 14 day antibiotic therapy is recommended; patient has been started on Flomax and will continue with Alvarez catheter post discharge until patient is seen by urology Patient is being followed by surgery and recommending to continue with current management and slow advancement in diet as bowel function improves. 11/28/2019 Patient is awake alert oriented x3. Currently lying in the bed. No bowel movement today. Patient was started on clear liquids. Patient is afebrile. No complaints of chest pain or shortness of breath. 11/29/2019 Patient is currently lying in the bed. Patient underwent enema today. Did have small bowel movement with that. Otherwise patient is tolerating liquids. No nausea vomiting. NG tube has been discontinued. Laboratory data showed WBC 10.7, hemoglobin 12.1 and platelets 279 Sodium 136, potassium 3.5 BUN 11 and creatinine 0.58 Blood sugar is 209 Patient is being continued on Flomax Current medications reviewed. Objective - Vital Signs Vital signs: Vital Signs Temp 98.5 F 11/29/19 19:00 Pulse 69 11/29/19 19:00 Resp 17 11/29/19 16:00 BP 165/71 11/29/19 19:00 Pulse Ox 96 11/29/19 19:00 Intake & Output 11/29/19 11/29/19 11/30/19 06:59 18:59 06:59 Intake Total 700 Output Total 1100 400 900 Balance -400 -400 -900 Intake: IV 700 Dextrose 5%-0.9% NaCl 1, 600 000 ml @ 75 mls/hr IV . [id number] [facility] Rx#:[id number] Piperacillin-Tazobactam 3 100 .375 gm In Sodium Chloride 0.9% 100 ml @ 25 mls/hr IVPB Q8HR [facility] Rx# :[id number] Output: Urine 1100 400 900 Straight 1100 Other: Voiding Method Indwelling Catheter # Voids 0 # Bowel Movements 1 - Exam PHYSICAL EXAMINATION: GENERAL: The patient is alert and oriented x3, not in any acute distress. Well developed, well nourished. HEENT: Pupils are round and equally reacting to light. EOMI. No scleral icterus. No conjunctival pallor. Normocephalic, atraumatic. No pharyngeal erythema. No thyromegaly. CARDIOVASCULAR: S1 and S2 present. No murmurs, rubs, or gallops. PULMONARY: Chest is clear to auscultation, no wheezing or crackles. ABDOMEN: Soft, nontender, nondistended, normoactive bowel sounds. No palpable organomegaly. MUSCULOSKELETAL: No joint swelling or deformity. EXTREMITIES: No cyanosis, clubbing, or pedal edema. NEUROLOGICAL: Gross neurological examination did not reveal any focal deficits. SKIN: No rashes. - Labs CBC & Chem 7: 11/29/19 18:52 11/29/19 18:52 Labs: Abnormal Lab Results - Last 24 Hours (Table) 11/29/19 11/29/19 11/29/19 Range/Units 06:50 11:23 16:21 WBC (3.8-10.6) k/uL RBC (4.30-5.90) m/uL Hgb (13.0-17.5) gm/dL Hct (39.0-53.0) % Neutrophils # (1.3-7.7) k/uL Lymphocytes # (1.0-4.8) k/uL Sodium (137-145) mmol/L Creatinine (0.66-1.25) mg/dL Glucose (74-99) mg/dL POC Glucose (mg/dL) 209 H 207 H 225 H (75-99) mg/dL 11/29/19 11/29/19 11/29/19 Range/Units 18:52 18:52 21:11 WBC 10.7 H (3.8-10.6) k/uL RBC 3.76 L (4.30-5.90) m/uL Hgb 12.1 L (13.0-17.5) gm/dL Hct 37.3 L (39.0-53.0) % Neutrophils # 8.9 H (1.3-7.7) k/uL Lymphocytes # 0.7 L (1.0-4.8) k/uL Sodium 136 L (137-145) mmol/L Creatinine 0.58 L (0.66-1.25) mg/dL Glucose 209 H (74-99) mg/dL POC Glucose (mg/dL) 222 H (75-99) mg/dL Assessment and Plan Assessment: High-grade small bowel obstruction status post exploratory laparotomy and lysis of adhesions and bowel resection. NG tube was removed; patient tolerating liquids. small BM with enema. Testicular pain/urinary retention; patient is recommended testicular support; consult urology for further recommendations Thickened esophagus on the CT possible gastritis Recent history of left knee meniscal washout surgery Recent 90 LB intentional weight loss with new diet regimen Uncontrolled hypertension Hyperlipidemia Diabetes type 2 goj-sntbhkr-jixwwhjtk DVT prophylaxis with Lovenox subcu Plan Patient will be continued on IV hydration . s/p exp lap. clear liquids. Patient is being continued on pain management, incentive spirometry and DVT prophylaxis. Continue with insulin scale and hold metformin at this time. Continue with home blood pressure medication- losartan. c/w Alvarez cath. Urology rec. abx with bactrim. We will follow closely and further recommendations based on clinical course. Time with Patient: Greater than 30
--- NOTE | 2019-12-01 | P.PN ---
Subjective Progress Note Date: 11/30/19 Principal diagnosis: High-grade small bowel obstruction Testicular pain/urinary retention 64-year-old male status post small bowel resection for internal hernia, 11/20/2019. He is POD 5. His family is at bedside and has concerns for testicular pain that has been present for 2 days. Vital signs remained stable with a temp of 97.7, pulse 75, respirations 16 and blood pressure of 131/64 Lab review shows a white blood count of 14.2, hemoglobin 11.2; chemical profile is stable Patient's NG tube has been removed; continue current management and bowel function improves; consult urology for testicular pain 11/26/2019 Patient is seen and evaluated in room at bedside; continues to complain of testicular pain and urinary retention Patient has been evaluated by urology; patient has an indwelling catheter- neurology is recommending to leave catheter just prior to discharge at which time it will be pulled for voiding trial; testicular ultrasound is recommended for further evaluation Surgery is following for small bowel obstruction which is slowly dissolving; patient is advanced to a low fiber diet 11/27/2019 Patient is seen and evaluated in room with family members at bedside; reports improvement in testicular pain; patient and family had detailed discussion with urologist and had no further questions Urology has evaluated patient and is started on IV antibiotics for right-sided orchitis with recommendations to transition to Bactrim and patient is ready for discharge; a total of 14 day antibiotic therapy is recommended; patient has been started on Flomax and will continue with Alvarez catheter post discharge until patient is seen by urology Patient is being followed by surgery and recommending to continue with current management and slow advancement in diet as bowel function improves. 11/28/2019 Patient is awake alert oriented x3. Currently lying in the bed. No bowel movement today. Patient was started on clear liquids. Patient is afebrile. No complaints of chest pain or shortness of breath. 11/29/2019 Patient is currently lying in the bed. Patient underwent enema today. Did have small bowel movement with that. Otherwise patient is tolerating liquids. No nausea vomiting. NG tube has been discontinued. Laboratory data showed WBC 10.7, hemoglobin 12.1 and platelets 279 Sodium 136, potassium 3.5 BUN 11 and creatinine 0.58 Blood sugar is 209 Patient is being continued on Flomax 11/30/2019 Currently patient is lying in the bed. Denies any complaints of nausea or vomiting. Still have abdominal pain. Patient underwent CT abdomen last night showed correlate for fecal impaction. Possible stercoral colitis. Postoperative pneumoperitoneum, fluid within the abdomen. Interval pleural effusions, additional findings. Patient does not have any good bowel movement yet. Currently being continued on soapsuds enema No fever no chills. Patient has been afebrile. Current medications reviewed. Objective - Vital Signs Vital signs: Vital Signs Temp 97.6 F 11/30/19 13:53 Pulse 69 11/30/19 13:53 Resp 17 11/30/19 13:53 BP 137/70 11/30/19 13:53 Pulse Ox 98 11/30/19 13:53 Intake & Output 11/30/19 11/30/19 12/01/19 06:59 18:59 06:59 Intake Total 400 Output Total 3400 800 Balance -3400 -400 Weight 84 kg Intake: IV 400 Dextrose 5%-0.9% NaCl 1, 300 000 ml @ 75 mls/hr IV . [id number] [facility] Rx#:[id number] Piperacillin-Tazobactam 3 100 .375 gm In Sodium Chloride 0.9% 100 ml @ 25 mls/hr IVPB Q8HR [facility] Rx# :[id number] Output: Urine 3400 800 Uretheral (Alvarez) 800 Other: Voiding Method Indwelling Catheter Indwelling Catheter - Exam PHYSICAL EXAMINATION: GENERAL: The patient is alert and oriented x3, not in any acute distress. Well developed, well nourished. HEENT: Pupils are round and equally reacting to light. EOMI. No scleral icterus. No conjunctival pallor. Normocephalic, atraumatic. No pharyngeal erythema. No thyromegaly. CARDIOVASCULAR: S1 and S2 present. No murmurs, rubs, or gallops. PULMONARY: Chest is clear to auscultation, no wheezing or crackles. ABDOMEN: Soft, nontender, nondistended, dminished bowel sounds. No palpable organomegaly. MUSCULOSKELETAL: No joint swelling or deformity. EXTREMITIES: No cyanosis, clubbing, or pedal edema. NEUROLOGICAL: Gross neurological examination did not reveal any focal deficits. SKIN: No rashes. - Labs CBC & Chem 7: 11/29/19 18:52 11/29/19 18:52 Labs: Abnormal Lab Results - Last 24 Hours (Table) 11/30/19 11/30/19 11/30/19 Range/Units 07:05 11:39 16:33 POC Glucose (mg/dL) 150 H 243 H 197 H (75-99) mg/dL 11/30/19 Range/Units 20:24 POC Glucose (mg/dL) 161 H (75-99) mg/dL Assessment and Plan Assessment: High-grade small bowel obstruction status post exploratory laparotomy and lysis of adhesions and bowel resection. NG tube was removed; patient tolerating li quids. small BM with enema. Fecal impaction. Testicular pain/urinary retention; patient is recommended testicular support; consult urology for further recommendations Thickened esophagus on the CT possible gastritis Recent history of left knee meniscal washout surgery Recent 90 LB intentional weight loss with new diet regimen Uncontrolled hypertension Hyperlipidemia Diabetes type 2 cek-ucsmuoi-smeyzrebo DVT prophylaxis with Lovenox subcu Plan Patient will be continued on IV hydration . s/p exp lap. clear liquids. Patient is being continued on pain management, incentive spirometry and DVT pr ophylaxis. Continue with insulin scale and hold metformin at this time. Continue with home blood pressure medication- losartan. c/w Alvarez cath. Urology rec. abx with bactrim. We will follow closely and further recommendations based on clinical course. Time with Patient: Greater than 30
[2019-12-01 07:27] LABS: Glucose,Whole Blood 139 mg/dL (75-99)
[2019-12-01] MEDS: INSULIN ASPART (NovoLOG) 100 UNIT/ML VIAL SQ SCH ×4 (07:30→21:24)
[2019-12-01] MEDS: TAMSULOSIN 0.4 MG CAP.ER.24H PO SCH (07:31)
[2019-12-01] MEDS: ENOXAPARIN 40 MG/0.4 ML SYRINGE SQ SCH (07:31)
[2019-12-01] MEDS: LOSARTAN 50 MG TAB PO SCH (07:31)
[2019-12-01] MEDS: ATORVASTATIN 20 MG TAB PO SCH (07:31)
[2019-12-01] MEDS: PANTOPRAZOLE 40 MG TABLET PO SCH (07:31)
[2019-12-01 11:25] LABS: Glucose,Whole Blood 202 mg/dL (75-99)
[2019-12-01] MEDS ORDERED: METOCLOPRAMIDE 5 MG/ML 2 ML VIAL IVP STA (13:46)
[2019-12-01] MEDS ORDERED: LACTULOSE 20 GM/30 ML CUP PO ONE (13:46)
[2019-12-01] MEDS ORDERED: MAGNESIUM HYDROXIDE 2,400 MG/10 ML CUP PO ONE (13:46)
--- NOTE | 2019-12-01 14:31 | P.PN ---
<Flor Bland - Last Filed: 12/01/19 14:31> Subjective Progress Note Date: 12/01/19 CHIEF COMPLAINT: Abdominal pain HISTORY OF PRESENT ILLNESS: Patient is status post small bowel resection secondary to strangulated internal hernia. Patient examined at the bedside with Dr. Devine (covering for Dr. Luna). Patient had CAT scan completed revealing fecal impaction. He received 3 soapsuds enema over the last 24 hours. Nursing reports he has had some liquid creamy brown stools and a stool overnight with a few hard pieces of a stool. He is tolerating liquid diet wi thout nausea or vomiting. Vital signs stable. Temperature 99.2 this morning. PHYSICAL EXAM: VITAL SIGNS: Reviewed GENERAL: Well-developed in no acute distress. HEENT: No sclera icterus. Extraocular movements grossly intact. Moist buccal mucosa. Head is atraumatic, normocephalic. Hears conversational speech. No nasal drainage. NECK: Supple without lymphadenopathy. CHEST: Non-labored respirations and equal bilateral excursions. CARDIOVASCULAR: Regular rate with regular rhythm. Palpable 2+ radial pulses. ABDOMEN: Soft. Nondistended. Nontender. Dressing clean dry intact. MUSCULOSKELETAL: No clubbing or cyanosis. NEUROLOGIC: No focal or lateralizing signs. Cranial nerves II through XII grossly intact. PSYCH: Appropriate affect. Alert and oriented to person, place and time. SKIN: Well perfused. Good skin turgor. ASSESSMENT: 1. Strangulated internal hernia, status post small bowel resection 2. Fecal impaction PLAN: -Advance diet -Reglan, MOM, and lactulose x 1 dose -Will begin daily MOM Nurse practitioner note has been reviewed by physician. Signing provider agrees with the documented findings, assessment, and plan of care. Objective - Vital Signs Vital signs: Vital Signs Temp 99.2 F 12/01/19 08:25 Pulse 55 L 12/01/19 08:25 Resp 16 12/01/19 08:25 BP 124/71 12/01/19 08:25 Pulse Ox 96 12/01/19 08:25 Intake & Output 11/30/19 12/01/19 12/01/19 18:59 06:59 18:59 Intake Total 400 Output Total 800 6300 Balance -400 -6300 Weight 84 kg Intake: IV 400 Dextrose 5%-0.9% NaCl 1, 300 000 ml @ 75 mls/hr IV . [id number] [facility] Rx#:[id number] Piperacillin-Tazobactam 3 100 .375 gm In Sodium Chloride 0.9% 100 ml @ 25 mls/hr IVPB Q8HR [facility] Rx# :[id number] Output: Urine 800 6300 Uretheral (Alvarez) 800 Other: Voiding Method Indwelling Catheter Indwelling Catheter Indwelling Catheter # Bowel Movements 1 - Labs CBC & Chem 7: 11/29/19 18:52 11/29/19 18:52 Labs: Abnormal Lab Results - Last 24 Hours (Table) 11/30/19 11/30/19 11/30/19 Range/Units 11:39 16:33 20:24 POC Glucose (mg/dL) 243 H 197 H 161 H (75-99) mg/dL 12/01/19 12/01/19 Range/Units 07:15 11:23 POC Glucose (mg/dL) 139 H 202 H (75-99) mg/dL <Qiana Devine N - Last Filed: 12/03/19 22:14> Subjective Patient seen and evaluated with above. No reports of nausea or vomiting. He is tolerating diet. Continue laxatives. Objective - Vital Signs Vital signs: Vital Signs Temp 98.1 F 12/03/19 14:46 Pulse 70 12/03/19 14:46 Resp 18 12/03/19 14:46 BP 153/81 12/03/19 14:46 Pulse Ox 98 12/03/19 14:46 Intake & Output 12/03/19 12/03/19 12/04/19 06:59 18:59 06:59 Output Total 7600 1200 650 Balance -7600 -1200 -650 Output: Urine 7600 1200 650 Uretheral (Alvarez) 1200 Other: Voiding Method Toilet Toilet Toilet # Voids 1 1 # Bowel Movements 1 1 - Labs CBC & Chem 7: 12/03/19 12:41 12/03/19 12:41 Labs: Abnormal Lab Results - Last 24 Hours (Table) 12/03/19 12/03/19 12/03/19 Range/Units 07:00 11:27 12:41 RBC 4.12 L (4.30-5.90) m/uL Hgb 12.9 L (13.0-17.5) gm/dL Creatinine (0.66-1.25) mg/dL Glucose (74-99) mg/dL POC Glucose (mg/dL) 144 H 224 H (75-99) mg/dL 12/03/19 12/03/19 12/03/19 Range/Units 12:41 16:26 20:32 RBC (4.30-5.90) m/uL Hgb (13.0-17.5) gm/dL Creatinine 0.56 L (0.66-1.25) mg/dL Glucose 159 H (74-99) mg/dL POC Glucose (mg/dL) 168 H 165 H (75-99) mg/dL Assessment and Plan (1) Internal hernia Current Visit: Yes Status: Acute Code(s): K45.8 - OTH ABDOMINAL HERNIA WITHOUT OBSTRUCTION OR GANGRENE SNOMED Code(s): 33274247 (2) Testicular pain Current Visit: Yes Status: Acute Code(s): N50.819 - TESTICULAR PAIN, UNSPECIFIED SNOMED Code(s): 51518453 (3) Small bowel obstruction Current Visit: Yes Status: Acute Code(s): K56.609 - UNSP INTESTNL OBST, UNSP TO PARTIAL VERSUS COMPLETE OBST SNOMED Code(s): 658954023 (4) Orchitis and epididymitis Current Visit: Yes Status: Acute Code(s): N45.3 - EPIDIDYMO-ORCHITIS SNOMED Code(s): 735830701 (5) Diabetes mellitus type 2, insulin dependent Current Visit: Yes Status: Acute Code(s): E11.9 - TYPE 2 DIABETES MELLITUS WITHOUT COMPLICATIONS; Z79.4 - TONE [employer] (CURRENT) USE OF INSULIN SNOMED Code(s): 554566312 (6) Chronic constipation Current Visit: Yes Status: Acute Code(s): K59.09 - OTHER CONSTIPATION SNOMED Code(s): 869737594 (7) Fecal impaction Current Visit: Yes Status: Acute Code(s): K56.41 - FECAL IMPACTION SNOMED Code(s): 08647017
[2019-12-01 16:40] LABS: Glucose,Whole Blood 172 mg/dL (75-99)
[2019-12-01 21:23] LABS: Glucose,Whole Blood 182 mg/dL (75-99)
[2019-12-02 07:12] LABS: Glucose,Whole Blood 142 mg/dL (75-99)
[2019-12-02] MEDS: PANTOPRAZOLE 40 MG TABLET PO SCH (07:38)
[2019-12-02] MEDS: ATORVASTATIN 20 MG TAB PO SCH (07:38)
[2019-12-02] MEDS: TAMSULOSIN 0.4 MG CAP.ER.24H PO SCH (07:38)
[2019-12-02] MEDS: MAGNESIUM HYDROXIDE 2,400 MG/10 ML CUP PO SCH (07:38)
[2019-12-02] MEDS: INSULIN ASPART (NovoLOG) 100 UNIT/ML VIAL SQ SCH ×4 (07:39→21:40)
[2019-12-02] MEDS: LOSARTAN 50 MG TAB PO SCH (07:39)
[2019-12-02] MEDS: ENOXAPARIN 40 MG/0.4 ML SYRINGE SQ SCH (07:39)
[2019-12-02 11:27] LABS: Glucose,Whole Blood 165 mg/dL (75-99)
--- NOTE | 2019-12-02 15:11 | P.PN ---
Subjective Progress Note Date: 12/02/19 CHIEF COMPLAINT: Small bowel obstruction HISTORY OF PRESENT ILLNESS: The patient is a 64-year-old male status post small bowel resection for internal hernia, 11/20/2019. Patient and girlfriend at bedside with multiple questions and concerns. Patient reports having moderate drainage along the incision. Per nurse, drainage was mild. Nurse had reinforced the dressing earlier in the morning. Additional history obtained where patient was on a 6 meals a day modified diet with his girlfriend at bedside. Patient had lost over 90 pounds from June until now, over 5 months. Also he notes uncontrolled diabetes with insulin of 195 units now down to minimal. Patient had developed pre-existing constipation with new diet where bowel habits were three times weekly. Last colonoscopy was 2 years ago. Patient had 3 colonoscopies in 13 years. He reports history of polyps. He also has family history of polyps. Patient is passing flatus with small amount of stool. He is tolerating regular diet. Also encouraged patient to increase oral intake of fluids. Patient prior to hospitalization, he was drinking 100 to 120 ounces of fluid. Patient has been afebrile in the last several days. He reports voiding. Physical therapy came by the patient's room where further ambulation was described to help with constipation. All questions addressed. ROS: No reports of nausea and vomiting. No fevers or chills. No new chest pain. No productive sputum PHYSICAL EXAM: VITAL SIGNS: Reviewed CONSTITUTIONAL: Well developed and in no acute distress. EYES: Conjuctivae without sclera icterus. Extraocular movements grossly intact. HEAD, EARS, NOSE, THROAT: Moist buccal mucosa. Head is atraumatic, normocephalic. Hears conversational speech. No nasal drainage. NECK: Supple. No thyroidomegaly. RESPIRATORY: Non-labored respirations and equal bilateral excursions. CARDIOVASCULAR: Palpable 2+ radial pulses. ABDOMEN: Soft. No peritonitis. Abdominal binder present. Wound assessed at bedside with serosanguineous drainage is consistent with seroma. No active infection or cellulitis. MS: Fingers evaluated. Sensation intact and warm to touch. No cyanosis or edema SKIN: Good skin turgor. Well perfused. NEUROLOGIC: Cranial nerves II through XII grossly intact. No focal or lateralizing signs. PSYCH: Appropriate affect. Alert and oriented to person, place and time. LABS: Reviewed. White blood cell count 11/29/2019 mildly elevated at 10.7 STUDIES: CT of the abdomen and pelvis independently reviewed demonstrates moderate stool retention in the rectum. ASSESSMENT: 1. Small bowel obstruction 2. Orchitis, right 3. Epididymitis, right 4. Urinary retention 5. Pre-existing chronic constipation PLAN: 1. Recommend milk of molasses enema to disimpact stool. 2. Ambulation encouraged. 3. Will repeat CBC Objective - Vital Signs Vital signs: Vital Signs Temp 98.0 F 12/02/19 14:02 Pulse 72 12/02/19 14:02 Resp 16 12/02/19 14:02 BP 137/72 12/02/19 14:02 Pulse Ox 97 12/02/19 14:02 Intake & Output 12/01/19 12/02/19 12/02/19 18:59 06:59 18:59 Output Total 1400 2200 1800 Balance -1400 -2200 -1800 Output: Urine 1400 2200 1800 Other: Voiding Method Indwelling Catheter Indwelling Catheter Toilet # Voids 1 - Labs CBC & Chem 7: 11/29/19 18:52 11/29/19 18:52 Labs: Abnormal Lab Results - Last 24 Hours (Table) 12/01/19 12/01/19 12/02/19 Range/Units 16:38 21:21 06:54 POC Glucose (mg/dL) 172 H 182 H 142 H (75-99) mg/dL 12/02/19 Range/Units 11:15 POC Glucose (mg/dL) 165 H (75-99) mg/dL Assessment and Plan (1) Internal hernia Current Visit: Yes Status: Acute Code(s): K45.8 - OTH ABDOMINAL HERNIA WITHOUT OBSTRUCTION OR GANGRENE SNOMED Code(s): 32940662 (2) Testicular pain Current Visit: Yes Status: Acute Code(s): N50.819 - TESTICULAR PAIN, UNSPECIFIED SNOMED Code(s): 68318800 (3) Small bowel obstruction Current Visit: Yes Status: Acute Code(s): K56.609 - UNSP INTESTNL OBST, UNSP TO PARTIAL VERSUS COMPLETE OBST SNOMED Code(s): 773118141 (4) Orchitis and epididymitis Current Visit: Yes Status: Acute Code(s): N45.3 - EPIDIDYMO-ORCHITIS SNOME D Code(s): 845270216 (5) Diabetes mellitus type 2, insulin dependent Current Visit: Yes Status: Acute Code(s): E11.9 - TYPE 2 DIABETES MELLITUS WITHOUT COMPLICATIONS; Z79.4 - SENIOR CARE (CURRENT) USE OF INSULIN SNOMED Code(s): 282636141 (6) Chronic constipation Current Visit: Yes Status: Acute Code(s): K59.09 - OTHER CONSTIPATION SNOMED Code(s): 797435289 (7) Fecal impaction Current Visit: Yes Status: Acute Code(s): K56.41 - FECAL IMPACTION SNOMED Code(s): 69333509
[2019-12-02 16:38] LABS: Glucose,Whole Blood 192 mg/dL (75-99)
[2019-12-02 21:25] LABS: Glucose,Whole Blood 168 mg/dL (75-99)
--- NOTE | 2019-12-02 23:51 | P.PN ---
Subjective Progress Note Date: 12/01/19 Principal diagnosis: High-grade small bowel obstruction Testicular pain/urinary retention 64-year-old male status post small bowel resection for internal hernia, 11/20/2019. He is POD 5. His family is at bedside and has concerns for testicular pain that has been present for 2 days. Vital signs remained stable with a temp of 97.7, pulse 75, respirations 16 and blood pressure of 131/64 Lab review shows a white blood count of 14.2, hemoglobin 11.2; chemical profile is stable Patient's NG tube has been removed; continue current management and bowel function improves; consult urology for testicular pain 11/26/2019 Patient is seen and evaluated in room at bedside; continues to complain of testicular pain and urinary retention Patient has been evaluated by urology; patient has an indwelling catheter- neurology is recommending to leave catheter just prior to discharge at which time it will be pulled for voiding trial; testicular ultrasound is recommended for further evaluation Surgery is following for small bowel obstruction which is slowly dissolving; patient is advanced to a low fiber diet 11/27/2019 Patient is seen and evaluated in room with family members at bedside; reports improvement in testicular pain; patient and family had detailed discussion with urologist and had no further questions Urology has evaluated patient and is started on IV antibiotics for right-sided orchitis with recommendations to transition to Bactrim and patient is ready for discharge; a total of 14 day antibiotic therapy is recommended; patient has been started on Flomax and will continue with Alvarez catheter post discharge until patient is seen by urology Patient is being followed by surgery and recommending to continue with current management and slow advancement in diet as bowel function improves. 11/28/2019 Patient is awake alert oriented x3. Currently lying in the bed. No bowel movement today. Patient was started on clear liquids. Patient is afebrile. No complaints of chest pain or shortness of breath. 11/29/2019 Patient is currently lying in the bed. Patient underwent enema today. Did have small bowel movement with that. Otherwise patient is tolerating liquids. No nausea vomiting. NG tube has been discontinued. Laboratory data showed WBC 10.7, hemoglobin 12.1 and platelets 279 Sodium 136, potassium 3.5 BUN 11 and creatinine 0.58 Blood sugar is 209 Patient is being continued on Flomax 11/30/2019 Currently patient is lying in the bed. Denies any complaints of nausea or vomiting. Still have abdominal pain. Patient underwent CT abdomen last night showed correlate for fecal impaction. Possible stercoral colitis. Postoperative pneumoperitoneum, fluid within the abdomen. Interval pleural effusions, additional findings. Patient does not have any good bowel movement yet. Currently being continued on soapsuds enema No fever no chills. Patient has been afebrile. 12 01 2019 Patient is currently sitting in the chair comfortably. Patient states that he did have a small bowel movement with soapsuds enema. No complaints of chest pain or abdominal pain. Patient was started on oral diet and is tolerating well. No complaints of chest pain or shortness of breath. Current medications reviewed. Objective - Vital Signs Vital signs: Vital Signs Temp 98.3 F 12/01/19 14:32 Pulse 71 12/01/19 14:32 Resp 18 12/01/19 14:32 BP 141/70 12/01/19 14:32 Pulse Ox 98 12/01/19 14:32 Intake & Output 12/01/19 12/01/19 12/02/19 06:59 18:59 06:59 Output Total 6300 1400 Balance -6300 -1400 Output: Urine 6300 1400 Other: Voiding Method Indwelling Catheter Indwelling Catheter # Bowel Movements 1 - Exam PHYSICAL EXAMINATION: GENERAL: The patient is alert and oriented x3, not in any acute distress. Well developed, well nourished. HEENT: Pupils are round and equally reacting to light. EOMI. No scleral icterus. No conjunctival pallor. Normocephalic, atraumatic. No pharyngeal erythema. No thyromegaly. CARDIOVASCULAR: S1 and S2 present. No murmurs, rubs, or gallops. PULMONARY: Chest is clear to auscultation, no wheezing or crackles. ABDOMEN: Soft, nontender, nondistended, bowel sounds presnet. No palpable organomegaly. MUSCULOSKELETAL: No joint swelling or deformity. EXTREMITIES: No cyanosis, clubbing, or pedal edema. NEUROLOGICAL: Gross neurological examination did not reveal any focal deficits. SKIN: No rashes. - Labs CBC & Chem 7: 11/29/19 18:52 11/29/19 18:52 Labs: Abnormal Lab Results - Last 24 Hours (Table) 07/31/20 07/31/20 07/31/20 Range/Units 07:15 11:23 16:38 POC Glucose (mg/dL) 139 H 202 H 172 H (75-99) mg/dL 12/01/19 Range/Units 21:21 POC Glucose (mg/dL) 182 H (75-99) mg/dL Assessment and Plan Assessment: High-grade small bowel obstruction status post exploratory laparotomy and lysis of adhesions and bowel resection. NG tube was removed; patient tolerating liquids. small BM with enema. Fecal impaction. Testicular pain/urinary retention; patient is recommended testicular support; consult urology for further recommendations Thickened esophagus on the CT possible gastritis Recent history of left knee meniscal washout surgery Recent 90 LB intentional weight loss with new diet regimen Uncontrolled hypertension Hyperlipidemia Diabetes type 2 [id number]-ahdzyhufj DVT prophylaxis with Lovenox subcu Plan Patient will be continued on IV hydration . s/p exp lap. clear liquids. Patient is being continued on pain management, incentive spirometry and DVT prophylaxis. Continue with insulin scale and hold metformin at this time. Continue with home blood pressure medication- losartan. c/w Alvarez cath. Urology rec. abx with bactrim. We will follow closely and further recommendations based on clinical course.
--- NOTE | 2019-12-02 23:54 | P.PN ---
Subjective Progress Note Date: 12/02/19 Principal diagnosis: High-grade small bowel obstruction Testicular pain/urinary retention 64-year-old male status post small bowel resection for internal hernia, 11/20/2019. He is POD 5. His family is at bedside and has concerns for testicular pain that has been present for 2 days. Vital signs remained stable with a temp of 97.7, pulse 75, respirations 16 and blood pressure of 131/64 Lab review shows a white blood count of 14.2, hemoglobin 11.2; chemical profile is stable Patient's NG tube has been removed; continue current management and bowel function improves; consult urology for testicular pain 11/26/2019 Patient is seen and evaluated in room at bedside; continues to complain of testicular pain and urinary retention Patient has been evaluated by urology; patient has an indwelling catheter- neurology is recommending to leave catheter just prior to discharge at which time it will be pulled for voiding trial; testicular ultrasound is recommended for further evaluation Surgery is following for small bowel obstruction which is slowly dissolving; patient is advanced to a low fiber diet 11/27/2019 Patient is seen and evaluated in room with family members at bedside; reports improvement in testicular pain; patient and family had detailed discussion with urologist and had no further questions Urology has evaluated patient and is started on IV antibiotics for right-sided orchitis with recommendations to transition to Bactrim and patient is ready for discharge; a total of 14 day antibiotic therapy is recommended; patient has been started on Flomax and will continue with Alvarez catheter post discharge until patient is seen by urology Patient is being followed by surgery and recommending to continue with current management and slow advancement in diet as bowel function improves. 11/28/2019 Patient is awake alert oriented x3. Currently lying in the bed. No bowel movement today. Patient was started on clear liquids. Patient is afebrile. No complaints of chest pain or shortness of breath. 11/29/2019 Patient is currently lying in the bed. Patient underwent enema today. Did have small bowel movement with that. Otherwise patient is tolerating liquids. No nausea vomiting. NG tube has been discontinued. Laboratory data showed WBC 10.7, hemoglobin 12.1 and platelets 279 Sodium 136, potassium 3.5 BUN 11 and creatinine 0.58 Blood sugar is 209 Patient is being continued on Flomax 11/30/2019 Currently patient is lying in the bed. Denies any complaints of nausea or vomiting. Still have abdominal pain. Patient underwent CT abdomen last night showed correlate for fecal impaction. Possible stercoral colitis. Postoperative pneumoperitoneum, fluid within the abdomen. Interval pleural effusions, additional findings. Patient does not have any good bowel movement yet. Currently being continued on soapsuds enema No fever no chills. Patient has been afebrile. 12 01 2019 Patient is currently sitting in the chair comfortably. Patient states that he did have a small bowel movement with soapsuds enema. No complaints of chest pain or abdominal pain. Patient was started on oral diet and is tolerating well. No complaints of chest pain or shortness of breath. 12/02/2019 Patient is currently sitting in the chair. Patient is getting any mass due to fecal impaction. General surgery is on board. Otherwise scrotal swelling is much improved. Continued on Alvarez catheter due to urinary retention. No complaints of abdominal pain. Passing flatus. No nausea vomiting. Tolerating oral diet. Current medications reviewed. Objective - Vital Signs Vital signs: Vital Signs Temp 98.0 F 12/02/19 14:02 Pulse 72 12/02/19 14:02 Resp 16 12/02/19 14:02 BP 137/72 12/02/19 14:02 Pulse Ox 97 12/02/19 14:02 Intake & Output 12/02/19 12/02/19 12/03/19 06:59 18:59 06:59 Output Total 2200 1800 3600 Balance -2200 -1800 -3600 Output: Urine 2200 1800 3600 Uretheral (Alvarez) 1200 Other: Voiding Method Indwelling Catheter Toilet Toilet # Voids 1 - Exam PHYSICAL EXAMINATION: GENERAL: The patient is alert and oriented x3, not in any acute distress. Well developed, well nourished. HEENT: Pupils are round and equally reacting to light. EOMI. No scleral icterus. No conjunctival pallor. Normocephalic, atraumatic. No pharyngeal erythema. No thyromegaly. CARDIOVASCULAR: S1 and S2 present. No murmurs, rubs, or gallops. PULMONARY: Chest is clear to auscultation, no wheezing or crackles. ABDOMEN: Soft, nontender, nondistended, bowel sounds presnet. No palpable organomegaly. MUSCULOSKELETAL: No joint swelling or deformity. EXTREMITIES: No cyanosis, clubbing, or pedal edema. NEUROLOGICAL: Gross neurological examination did not reveal any focal deficits. SKIN: No rashes. - Labs CBC & Chem 7: 11/29/19 18:52 11/29/19 18:52 Labs: Abnormal Lab Results - Last 24 Hours (Table) 12/02/19 12/02/19 12/02/19 Range/Units 06:54 11:15 16:36 POC Glucose (mg/dL) 142 H 165 H 192 H (75-99) mg/dL 12/02/19 Range/Units 21:22 POC Glucose (mg/dL) 168 H (75-99) mg/dL Assessment and Plan Assessment: High-grade small bowel obstruction status post exploratory laparotomy and lysis of adhesions and bowel resection. NG tube was removed; patient tolerating liquids. small BM with enema. Fecal impaction. Testicular pain/urinary retention; patient is recommended testicular support; consult urology for further recommendations Thickened esophagus on the CT possible gastritis Recent history of left knee meniscal washout surgery Recent 90 LB intentional weight loss with new diet regimen Uncontrolled hypertension Hyperlipidemia Diabetes type 2 [id number]-lgesnztbz DVT prophylaxis with Lovenox subcu Plan Patient will be continued on IV hydration . s/p exp lap. clear liquids to advance. c/w enema and mg citrate Patient is being continued on pain management, incentive spirometry and DVT prophylaxis. Continue with insulin scale and hold metformin at this time. Continue with home blood pressure medication- losartan. c/w Alvarez cath. Urology rec. abx with bactrim. We will follow closely and further recommendations based on clinical course. Time with Patient: Greater than 30
[2019-12-03 07:01] LABS: Glucose,Whole Blood 144 mg/dL (75-99)
[2019-12-03] MEDS: MAGNESIUM HYDROXIDE 2,400 MG/10 ML CUP PO SCH (08:03)
[2019-12-03] MEDS: INSULIN ASPART (NovoLOG) 100 UNIT/ML VIAL SQ SCH ×4 (08:03→20:37)
[2019-12-03] MEDS: ENOXAPARIN 40 MG/0.4 ML SYRINGE SQ SCH (08:03)
[2019-12-03] MEDS: LOSARTAN 50 MG TAB PO SCH (08:04)
[2019-12-03] MEDS: TAMSULOSIN 0.4 MG CAP.ER.24H PO SCH (08:04)
[2019-12-03] MEDS: PANTOPRAZOLE 40 MG TABLET PO SCH (08:04)
[2019-12-03] MEDS: ATORVASTATIN 20 MG TAB PO SCH (08:04)
[2019-12-03 11:28] LABS: Glucose,Whole Blood 224 mg/dL (75-99)
[2019-12-03 12:52] LABS: Basophils # (A) 0.1 k/uL (0-0.2); Basophils % (A) 1 %; Eosinophils # (A) 0.3 k/uL (0-0.7); Eosinophils % (A) 4 %; HGB 12.9 gm/dL (13.0-17.5); Lymphocytes # (A) 1.4 k/uL (1.0-4.8); Lymphocytes % (A) 17 %; MCH 31.2 pg (25.0-35.0); MCHC 32.1 g/dL (31.0-37.0); MCV 97.2 fL (80.0-100.0); Mean Platelet Volume 6.9; Monocytes # (A) 0.4 k/uL (0-1.0); Monocytes % (A) 4 %; Neutrophils # (A) 6.3 k/uL (1.3-7.7); Neutrophils % (A) 73 %; Platelet Count 324 k/uL (150-450); RBC 4.12 m/uL (4.30-5.90); RDW 13.4 % (11.5-15.5); WBC 8.6 k/uL (3.8-10.6)
[2019-12-03 13:09] LABS: African American GFR (CKD) >90 (>60 ml/min/1.73 sqM); Anion Gap 6 mmol/L; Blood Urea Nitrogen 16 mg/dL (9-20); Calcium 8.9 mg/dL (8.4-10.2); Carbon Dioxide 29 mmol/L (22-30); Chloride 102 mmol/L (98-107); Glucose 159 mg/dL (74-99); Non-African American GFR(CKD) >90 (>60 ml/min/1.73 sqM); Potassium 4.3 mmol/L (3.5-5.1); Sodium 137 mmol/L (137-145)
--- NOTE | 2019-12-03 14:10 | P.PN ---
Subjective Progress Note Date: 12/03/19 CHIEF COMPLAINT: Small bowel obstruction HISTORY OF PRESENT ILLNESS: The patient is a 64-year-old male status post small bowel resection for internal hernia, 11/20/2019. He has history of fecal impaction per computed tomography scan several days ago. Despite 4 enemas of soap suds enema and fleets enema, patient had minimal results. Today, he reports moderate stool from his milk of molasses enema. He feels well. He is smiling. Family is at bedside. ROS: No reports of nausea and vomiting. No fevers or chills. No new chest pain. No productive sputum PHYSICAL EXAM: VITAL SIGNS: Reviewed CONSTITUTIONAL: Well developed and in no acute distress. EYES: Conjuctivae without sclera icterus. Extraocular movements grossly intact. HEAD, EARS, NOSE, THROAT: Moist buccal mucosa. Head is atraumatic, normocephalic. NECK: Supple. No thyroidomegaly. RESPIRATORY: Non-labored respirations and equal bilateral excursions. CARDIOVASCULAR: Palpable 2+ radial pulses. ABDOMEN: Soft. No peritonitis. MS: No cyanosis or edema SKIN: Good skin turgor. Well perfused. NEUROLOGIC: Cranial nerves II through XII grossly intact. No focal or lateralizing signs. PSYCH: Appropriate affect. Alert and oriented to person, place and time. LABS: Reviewed. White blood cell count 10.7 down to 8.6 ASSESSMENT: 1. Small bowel obstruction 2. Orchitis, right 3. Epididymitis, right 4. Urinary retention 5. Pre-existing chronic constipation PLAN: 1. He had good results with enema. 2. Continue with current plan. 3. Continue ambulation and activity Objective - Vital Signs Vital signs: Vital Signs Temp 98.1 F 12/03/19 07:00 Pulse 74 12/03/19 07:00 Resp 18 12/03/19 07:00 BP 146/80 12/03/19 07:00 Pulse Ox 95 12/03/19 07:00 Intake & Output 12/02/19 12/03/19 12/03/19 18:59 06:59 18:59 Output Total 1800 7600 Balance -1800 -7600 Output: Urine 1800 7600 Uretheral (Alvarez) 1200 Other: Voiding Method Toilet Toilet Toilet - Labs CBC & Chem 7: 12/03/19 12:41 12/03/19 12:41 Labs: Abnormal Lab Results - Last 24 Hours (Table) 12/02/19 12/02/19 12/03/19 Range/Units 16:36 21:22 07:00 RBC (4.30-5.90) m/uL Hgb (13.0-17.5) gm/dL Creatinine (0.66-1.25) mg/dL Glucose (74-99) mg/dL POC Glucose (mg/dL) 192 H 168 H 144 H (75-99) mg/dL 12/03/19 12/03/19 12/03/19 Range/Units 11:27 12:41 12:41 RBC 4.12 L (4.30-5.90) m/uL Hgb 12.9 L (13.0-17.5) gm/dL Creatinine 0.56 L (0.66-1.25) mg/dL Glucose 159 H (74-99) mg/dL POC Glucose (mg/dL) 224 H (75-99) mg/dL Assessment and Plan (1) Internal hernia Current Visit: Yes Status: Acute Code(s): K45.8 - OTH ABDOMINAL HERNIA WITHOUT OBSTRUCTION OR GANGRENE SNOMED Code(s): 84779028 (2) Testicular pain Current Visit: Yes Status: Acute Code(s): N50.819 - TESTICULAR PAIN, UNSPECIFIED SNOMED Code(s): 93419946 (3) Small bowel obstruction Current Visit: Yes Status: Acute Code(s): K56.609 - UNSP INTESTNL OBST, UNSP TO PARTIAL VERSUS COMPLETE OBST SNOMED Code(s): 841673271 (4) Orchitis and epididymitis Current Visit: Yes Status: Acute Code(s): N45.3 - EPIDIDYMO-ORCHITIS S NOMED Code(s): 666266816 (5) Diabetes mellitus type 2, insulin dependent Current Visit: Yes Status: Acute Code(s): E11.9 - TYPE 2 DIABETES MELLITUS WITHOUT COMPLICATIONS; Z79.4 - INTERMEDIATE (CURRENT) USE OF INSULIN SNOMED Code(s): 970243532 (6) Chronic constipation Current Visit: Yes Status: Acute Code(s): K59.09 - OTHER CONSTIPATION SNOMED Code(s): 413358424 (7) Fecal impaction Current Visit: Yes Status: Acute Code(s): K56.41 - FECAL IMPACTION SNOMED Code(s): 43552953
[2019-12-03 16:28] LABS: Glucose,Whole Blood 168 mg/dL (75-99)
[2019-12-03 20:34] LABS: Glucose,Whole Blood 165 mg/dL (75-99)
--- NOTE | 2019-12-03 23:27 | P.PN ---
Subjective Progress Note Date: 12/03/19 Principal diagnosis: High-grade small bowel obstruction Testicular pain/urinary retention 64-year-old male status post small bowel resection for internal hernia, 11/20/2019. He is POD 5. His family is at bedside and has concerns for testicular pain that has been present for 2 days. Vital signs remained stable with a temp of 97.7, pulse 75, respirations 16 and blood pressure of 131/64 Lab review shows a white blood count of 14.2, hemoglobin 11.2; chemical profile is stable Patient's NG tube has been removed; continue current management and bowel function improves; consult urology for testicular pain 11/26/2019 Patient is seen and evaluated in room at bedside; continues to complain of testicular pain and urinary retention Patient has been evaluated by urology; patient has an indwelling catheter- neurology is recommending to leave catheter just prior to discharge at which time it will be pulled for voiding trial; testicular ultrasound is recommended for further evaluation Surgery is following for small bowel obstruction which is slowly dissolving; patient is advanced to a low fiber diet 11/27/2019 Patient is seen and evaluated in room with family members at bedside; reports improvement in testicular pain; patient and family had detailed discussion with urologist and had no further questions Urology has evaluated patient and is started on IV antibiotics for right-sided orchitis with recommendations to transition to Bactrim and patient is ready for discharge; a total of 14 day antibiotic therapy is recommended; patient has been started on Flomax and will continue with Alvarez catheter post discharge until patient is seen by urology Patient is being followed by surgery and recommending to continue with current management and slow advancement in diet as bowel function improves. 11/28/2019 Patient is awake alert oriented x3. Currently lying in the bed. No bowel movement today. Patient was started on clear liquids. Patient is afebrile. No complaints of chest pain or shortness of breath. 11/29/2019 Patient is currently lying in the bed. Patient underwent enema today. Did have small bowel movement with that. Otherwise patient is tolerating liquids. No nausea vomiting. NG tube has been discontinued. Laboratory data showed WBC 10.7, hemoglobin 12.1 and platelets 279 Sodium 136, potassium 3.5 BUN 11 and creatinine 0.58 Blood sugar is 209 Patient is being continued on Flomax 11/30/2019 Currently patient is lying in the bed. Denies any complaints of nausea or vomiting. Still have abdominal pain. Patient underwent CT abdomen last night showed correlate for fecal impaction. Possible stercoral colitis. Postoperative pneumoperitoneum, fluid within the abdomen. Interval pleural effusions, additional findings. Patient does not have any good bowel movement yet. Currently being continued on soapsuds enema No fever no chills. Patient has been afebrile. 12 01 2019 Patient is currently sitting in the chair comfortably. Patient states that he did have a small bowel movement with soapsuds enema. No complaints of chest pain or abdominal pain. Patient was started on oral diet and is tolerating well. No complaints of chest pain or shortness of breath. 12/02/2019 Patient is currently sitting in the chair. Patient is getting any mass due to fecal impaction. General surgery is on board. Otherwise scrotal swelling is much improved. Continued on Alvarez catheter due to urinary retention. No complaints of abdominal pain. Passing flatus. No nausea vomiting. Tolerating oral diet. 12/03/2019 Patient is currently resting in the bed comfortably. Patient did have small amount of stool with milk of magnesia and enema. Denied any complaints of abdominal pain. No fever no chills. No chest pain or shortness of breath. Tolerating oral diet. No headache or dizziness or lightheadedness. Current medications reviewed. Objective - Vital Signs Vital signs: Vital Signs Temp 98.1 F 12/03/19 14:46 Pulse 70 12/03/19 14:46 Resp 18 12/03/19 14:46 BP 153/81 12/03/19 14:46 Pulse Ox 98 12/03/19 14:46 Intake & Output 12/03/19 12/03/19 12/04/19 06:59 18:59 06:59 Output Total 7600 1200 Balance -7600 -1200 Output: Urine 7600 1200 Uretheral (Alvarez) 1200 Other: Voiding Method Toilet Toilet Toilet # Voids 1 # Bowel Movements 1 - Exam PHYSICAL EXAMINATION: GENERAL: The patient is alert and oriented x3, not in any acute distress. Well developed, well nourished. HEENT: Pupils are round and equally reacting to light. EOMI. No scleral icterus. No conjunctival pallor. Normocephalic, atraumatic. No pharyngeal erythema. No thyromegaly. CARDIOVASCULAR: S1 and S2 present. No murmurs, rubs, or gallops. PULMONARY: Chest is clear to auscultation, no wheezing or crackles. ABDOMEN: Soft, nontender, nondistended, bowel sounds presnet. No palpable organomegaly. MUSCULOSKELETAL: No joint swelling or deformity. EXTREMITIES: No cyanosis, clubbing, or pedal edema. NEUROLOGICAL: Gross neurological examination did not reveal any focal deficits. SKIN: No rashes. - Labs CBC & Chem 7: 12/03/19 12:41 12/03/19 12:41 Labs: Abnormal Lab Results - Last 24 Hours (Table) 12/02/19 12/03/19 12/03/19 Range/Units 21:22 07:00 11:27 RBC (4.30-5.90) m/uL Hgb (13.0-17.5) gm/dL Creatinine (0.66-1.25) mg/dL Glucose (74-99) mg/dL POC Glucose (mg/dL) 168 H 144 H 224 H (75-99) mg/dL 12/03/19 12/03/19 12/03/19 Range/Units 12:41 12:41 16:26 RBC 4.12 L (4.30-5.90) m/uL Hgb 12.9 L (13.0-17.5) gm/dL Creatinine 0.56 L (0.66-1.25) mg/dL Glucose 159 H (74-99) mg/dL POC Glucose (mg/dL) 168 H (75-99) mg/dL Assessment and Plan Assessment: High-grade small bowel obstruction status post exploratory laparotomy and lysis of adhesions and bowel resection. NG tube was removed; patient tolerating liquids. small BM with enema. Fecal impaction. Testicular pain/urinary retention; patient is recommended testicular support; consult urology for further recommendations Thickened esophagus on the CT possible gastritis Recent history of left knee meniscal washout surgery Recent 90 LB intentional weight loss with new diet regimen Uncontrolled hypertension Hyperlipidemia Diabetes type 2 [id number] DVT prophylaxis with Lovenox subcu Plan Patient will be continued on IV hydration . s/p exp lap. clear liquids to advance. c/w enema and mg citrate Patient is being continued on pain management, incentive spirometry and DVT prophylaxis. Continue with insulin scale and hold metformin at this time. Continue with home blood pressure medication- losartan. Alvarez cath has been dced. Urology rec. abx with bactrim.Scrotal swelling improved. We will follow closely and further recommendations based on clinical course. Time with Patient: Greater than 30
[2019-12-04 06:57] LABS: Glucose,Whole Blood 113 mg/dL (75-99)
[2019-12-04] MEDS: INSULIN ASPART (NovoLOG) 100 UNIT/ML VIAL SQ SCH ×2 (07:23→12:05)
[2019-12-04] MEDS: PANTOPRAZOLE 40 MG TABLET PO SCH (07:25)
[2019-12-04] MEDS: TAMSULOSIN 0.4 MG CAP.ER.24H PO SCH (07:30)
--- NOTE | 2019-12-04 08:03 | XR ---
EXAMINATION TYPE: XR abdomen 2V DATE OF EXAM: 12/04/2019 CLINICAL HISTORY: Abdominal pain. Impaction per Order. TECHNIQUE: Supine and upright views of the abdomen are obtained. COMPARISON: CT abdomen and pelvis November 29, 2019. FINDINGS: Oral contrast from recent CT has progressed into the colon. Some mild retained fecal materi al at level of hepatic flexure. Gas seen in nondistended small bowel loops and stomach bubble. Tasley ing vertical skin jaden in the midline overlying the lower abdomen and pelvis. Osseous structures a re intact. IMPRESSION: Overall nonobstructive bowel gas pattern. No significant fecal stasis.
--- NOTE | 2019-12-04 09:12 | P.PN ---
Subjective 64-year-old male status post small bowel resection for internal hernia, 11/20/2019. He presents on 11/19 with signs symptoms of bowel obstruction sec ondary to internal hernia status post expiratory laparotomy on 11/19 with lysis of adhesions and small bowel resection. Also was complaining of from right testicular pain, urologist evaluated the patient and recommended conservative therapy. Alvarez catheter was discontinued by 3 days ago as per patient and his been peeing with no problems, no dysuria, no increased frequency or urgency. However his still have right testicular pain. Patient informed about his complex right hydrocele with a recommendation that he follows outpatient with Dr. Montoya and he agrees. He is tolerating diet well, physician about 75% of his meal, no nausea vomiting, he has 5/10 abdominal pain which is improved, and his been having 3-4 bowel movements since yesterday, no diarrhea. Status post enema on 12/02 He is a patient of Dr. Deanna López, Vitals stable and patient is afebrile. No labs from today however history of a CBC and BMP was unremarkable, sugar control. Abdominal x-ray: Nonobstructive bowel pattern His family is at bedside and has concerns for testicular pain that has been present for 2 days. Vital signs remained stable with a temp of 97.7, pulse 75, respirations 16 and blood pressure of 131/64 Lab review shows a white blood count of 14.2, hemoglobin 11.2; chemical profile is stable Patient's NG tube has been removed; continue current management and bowel function improves; consult urology for testicular pain Objective - Vital Signs Vital signs: Vital Signs Temp 99.5 F 12/04/19 08:00 Pulse 94 12/04/19 08:00 Resp 18 12/03/19 14:46 BP 128/75 12/04/19 08:00 Pulse Ox 94 L 12/04/19 03:15 Intake & Output 12/03/19 12/04/19 12/04/19 18:59 06:59 18:59 Intake Total 60 Output Total 1200 3700 Balance -1200 -3700 60 Intake: Oral 60 Output: Urine 1200 3700 Other: Voiding Method Toilet Toilet # Voids 1 2 # Bowel Movements 1 2 - Exam GENERAL: The patient is alert and oriented x3, not in any acute distress. Well d eveloped, well nourished. HEENT: Pupils are round and equally reacting to light. EOMI. No scleral icterus. No conjunctival pallor. Normocephalic, atraumatic. No pharyngeal erythema. No thyromegaly. CARDIOVASCULAR: S1 and S2 present. No murmurs, rubs, or gallops. PULMONARY: Chest is clear to auscultation, no wheezing or crackles. ABDOMEN: Soft, nontender, nondistended, normoactive bowel sounds. No palpable organomegaly. MUSCULOSKELETAL: No joint swelling or deformity. EXTREMITIES: No cyanosis, clubbing, or pedal edema. NEUROLOGICAL: Gross neurological examination did not reveal any focal deficits. SKIN: No rashes. no petechiae. - Labs CBC & Chem 7: 12/03/19 12:41 12/03/19 12:41 Labs: Abnormal Lab Results - Last 24 Hours (Table) 12/03/19 12/03/19 12/03/19 Range/Units 11:27 12:41 12:41 RBC 4.12 L (4.30-5.90) m/uL Hgb 12.9 L (13.0-17.5) gm/dL Creatinine 0.56 L (0.66-1.25) mg/dL Glucose 159 H (74-99) mg/dL POC Glucose (mg/dL) 224 H (75-99) mg/dL 12/03/19 12/03/19 12/04/19 Range/Units 16:26 20:32 06:54 RBC (4.30-5.90) m/uL Hgb (13.0-17.5) gm/dL Creatinine (0.66-1.25) mg/dL Glucose (74-99) mg/dL POC Glucose (mg/dL) 168 H 165 H 113 H (75-99) mg/dL Assessment and Plan Assessment: High-grade small bowel obstruction status post exploratory laparotomy and lysis of adhesions and bowel resection. Improving Fecal impaction, improving Testicular pain/urinary retention; patient is recommended testicular support; follow up with urology Recent history of left knee meniscal washout surgery Recent 90 LB intentional weight loss with new diet regimen Uncontrolled hypertension Hyperlipidemia Diabetes type 2 [id number] Plan: This is a pleasant 64 years old male who presents with us by mouth, status post exploratory laparotomy and lysis of adhesions. Also has been evaluated by urologist for testicular pain, patient is tolerating diet well, continue with conservative management, recommend patient follow up with urologist upon discharge for his right testicular problem, risks including but not limited to precancerous explained to the patient and he verbalized understanding and acceptance. Labs and medication were reviewed.. Continue same treatment. Continue with symptomatic treatment. Resume home medication. Monitor lytes and vitals. DVT and GI prophylaxis. Further recommendations of the clinical course of the patient DVT prophylaxis: Subcutaneous Lovenox GI Prophylaxis: Pepcid PT/OT: Recommended home health care Prognosis is guarded Discussed with staff We recommend patient follow up with PCP Dr. López upon discharge in one week, Thank you for consulting us.
[2019-12-04] MEDS: ATORVASTATIN 20 MG TAB PO SCH (09:33)
[2019-12-04] MEDS: LOSARTAN 50 MG TAB PO SCH (09:34)
[2019-12-04] MEDS: MAGNESIUM HYDROXIDE 2,400 MG/10 ML CUP PO SCH (09:34)
[2019-12-04] MEDS: ENOXAPARIN 40 MG/0.4 ML SYRINGE SQ SCH (09:35)
[2019-12-04 11:41] LABS: Glucose,Whole Blood 193 mg/dL (75-99)
--- NOTE | 2019-12-04 12:55 | P.DS ---
Providers Date of admission: 11/19/19 18:51 Expected date of discharge: 12/04/19 Attending physician: Jose Luis Luna Consults: 11/20/19 16:06 Consult Physician Routine Consulting Provider: Ab Patel Consult Reason/Comments: med management Do you want consulting provider notified?: Yes 11/25/19 14:31 Consult Physician Routine Consulting Provider: Braydon Trotter Consult Reason/Comments: Testicular pain Do you want consulting provider notified?: Yes Primary care physician: Physician Nonstaff Hospital Course: This a 64-year-old male who underwent sport or laparotomy for strangulated internal hernia with small bowel resection. Patient's postoperative stay was complicated with fecal impaction. Please see chart for details. Procedures: Sports laparotomy with small bowel resection Patient Condition at Discharge: Good Plan - Discharge Summary Discharge Rx Participant: Yes New Discharge Prescriptions: New HYDROcodone/APAP 5-325MG [[place] 5-325] 1 tab PO Q4HR PRN #10 tab PRN Reason: Pain No Action Losartan Potassium 100 mg PO DAILY Cholecalciferol [Vitamin D3 (25 Mcg = 1000 Iu)] 5,000 unit PO DAILY Atorvastatin [Lipitor] 20 mg PO DAILY Aspirin EC [Ecotrin Low Dose] 81 mg PO BID metFORMIN HCL 850 mg PO HS Discharge Medication List Aspirin EC [Ecotrin Low Dose] 81 mg PO BID 11/19/19 [History] Atorvastatin [Lipitor] 20 mg PO DAILY 11/19/19 [History] Cholecalciferol [Vitamin D3 (25 Mcg = 1000 Iu)] 5,000 unit PO DAILY 11/19/19 [History] Losartan Potassium 100 mg PO DAILY 11/19/19 [History] metFORMIN HCL 850 mg PO HS 11/19/19 [History] HYDROcodone/APAP 5-325MG [[place] 5-325] 1 tab PO Q4HR PRN #10 tab 11/26/19 [Rx] Follow up Appointment(s)/Referral(s): [facility] [NON-STAFF] - As Needed (Please call with any questions regarding your new walker. ) Nonstaff,Physician [Primary Care Provider] - 1-2 days Braydon Trotter MD [STAFF PHYSICIAN] - 12/22/19 10:20 am Jose Luis Luna MD [STAFF PHYSICIAN] - 1 Week Discharge Disposition: HOME SELF-CARE
[2019-12-04 14:51] VITALS: BP 118/58; PULSE 88; RESP 16; TEMP 99.4
--- NOTE | 2019-12-05 14:54 | CDI ---
Documentation Clarification Form Date: 12/05/2019 02:37:02 PM From: iWlla Ruiz Phone: If you have a question about this query, please contact Ester Quijano Preschool Disability Teacher at [phone] between 8am and 5pm. Admit Date: 11/19/2019 06:51:00 PM Patient Name: Gregg Alonzo Visit Number: [id number] Discharge Date: 12/04/2019 03:55:00 PM ATTENTION: The Clinical Documentation Specialists (CDI) and [facility] Coding Staff appreciate your assistance in clarifying documentation. Please respond to the clarification below the line at the bottom and electronically sign. The CDI & [facility] Coding staff will review the response and follow-up if needed. Please note: Queries are made part of the Legal Health Record. If you have any questions, please contact the author of this message via ITS. Dr. 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 3 of 8 mesenteric lymph nodes positive for metastasis likely from elsewhere. Tumor extension cannot be assessed because primary submucosal primary tumor not present. Please clarify significance of postivie path report Patient history/risk factors: Patient with obstruction and internal hernia Radiology: High grade small bowel obstruction Vital Signs:98. F, 55 bpm, 16, 152/75, 98% RA Other Clinical Indicators: Treatment: exicsion of small bowel segmental In your professional opinion, can you please specify the significance of positive path report documenting neuroendocrine tumor carcinoid of jejunum and ileum and mesenteric lymph notes primary elsewhere. Behavior Malignant, primary site Malignant, secondary site Benign In situ Of uncertain behavior Other, please specify Unable to determine Unable to determine MTDD
--- NOTE | 2019-12-05 15:07 | CDI ---
Documentation Clarification Form Date: 12/05/2019 02:55:58 PM From: Willa Sara Phone: If you have a question about this query, please contact Ester Quijano Soaping Department Supervisor at [phone] between 8am and 5pm. Admit Date: 11/19/2019 06:51:00 PM Patient Name: Gregg Alonzo Visit Number: [id number] Discharge Date: 12/04/2019 03:55:00 PM ATTENTION: The Clinical Documentation Specialists (CDI) and [facility] Coding Staff appreciate your assistance in clarifying documentation. Please respond to the clarification below the line at the bottom and electronically sign. The CDI & [facility] Coding staff will review the response and follow-up if needed. Please note: Queries are made part of the Legal Health Record. If you have any questions, please contact the author of this message via ITS. Dr. Jose Luis Luna Documentation in the Operative Report included patient with adhesions and adhesions lysed. Please clarify if lysis of adhesions was extensive or not. History/Risk factors: internal hernia, chronic constipation. SBO, positive path for neuroendocrine tumor Pre-Operative Diagnosis: SBO Postoperative Diagnosis: SBO secondary to internal hernia Treatment: segmental resection of small bowel laparotomy lysis of adhesions In order to capture the severity of condition, please specify the following: Extensive lysis of adhesions Non-extensive lysis of adhesions Other please specify: Unable to Determine Extensive adhesions MTDD
--- NOTE | 2019-12-07 10:55 | CDI ---
Documentation Clarification Form Date: 12/07/2019 10:40:33 AM From: Willa Ruiz Phone: If you have a question about this query, please contact Ester Quijano Patient Insurance Clerk at [phone] between 8am and 5pm. Admit Date: 11/19/2019 06:51:00 PM Patient Name: Gregg Alonzo Visit Number: [id number] Discharge Date: 12/04/2019 03:55:00 PM ATTENTION: The Clinical Documentation Specialists (CDI) and [facility] Coding Staff appreciate your assistance in clarifying documentation. Please respond to the clarification below the line at the bottom and electronically sign. The CDI & [facility] Coding staff will review the response and follow-up if needed. Please note: Queries are made part of the Legal Health Record. If you have any questions, please contact the author of this message via ITS. Dr. Jose Luis Juneania Neuroendocrine tumor jejunum and ileum 3/8 lymph nodes positive. Cannot be assessed primary submucosal tumor is not present. In order to capture the accurate diagnosis based on path report findings, we need you as attending to acknowledge the path dx of neuroendocrine tumor with unknown primary. We are not allowed to code from the path report without documentation and approval from the attending physician. Please clarify. Patient history/risk factors: SBO Clinical Indicators: Positive path report In your professional opinion, do you concur with the path report? Yes NO Yes MTDD
== END 2019-12-04 15:55 | disposition home or self-care (01) | DRG 330 ==
LOC: EC 15:35 → 4SSUR 18:51
PROVIDERS: ADMIT Surgery; ATTEND Surgery
PROC: 0DB80ZZ Excision of Small Intestine, Open Approach (ICD-10-PCS; principal; 2019-11-20 10:20)
PROC: 0DN80ZZ Release Small Intestine, Open Approach (ICD-10-PCS; principal; 2019-11-20 10:20)
DX: C7A.019 Malignant carcinoid tumor of the small intestine, unspecified portion (principal); E87.1 Hypo-osmolality and hyponatremia; J90 Pleural effusion, not elsewhere classified; K46.0 Unspecified abdominal hernia with obstruction, without gangrene; K55.9 Vascular disorder of intestine, unspecified; R18.8 Other ascites; E11.65 Type 2 diabetes mellitus with hyperglycemia; E78.5 Hyperlipidemia, unspecified; I10 Essential (primary) hypertension; K56.41 Fecal impaction; N43.3 Hydrocele, unspecified; N45.3 Epididymo-orchitis; Z79.899 Other long term (current) drug therapy; Z86.010 Personal history of colon polyps; Z96.652 Presence of left artificial knee joint; K59.09 Other constipation; R33.8 Other retention of urine; K29.70 Gastritis, unspecified, without bleeding; C77.2 Secondary and unspecified malignant neoplasm of intra-abdominal lymph nodes; C80.1 Malignant (primary) neoplasm, unspecified; Z90.49 Acquired absence of other specified parts of digestive tract; Z79.82 Long term (current) use of aspirin; Z79.84 Long term (current) use of oral hypoglycemic drugs; K66.0 Peritoneal adhesions (postprocedural) (postinfection); Z20.828 Contact with and (suspected) exposure to other viral communicable diseases
CPT/HCPCS: 36415; 71045; 74019; 74177; 76870; 80048; 80053; 81001; 81003; 82150; 83036; 83690; 85025; 85610; 85730; 87086; 87635; 88307; 88309; 88341; 88342; 93975; 96361; 96374; 96375; 99285